=== PATIENT | female | born 1945 | race Caucasian/White ===

== ENCOUNTER 2016-12-29 14:54 | Inpatient (IN) | payer OTHER, MEDICARE, MEDICAID ==
[2016-12-29] VITALS (7 sets, daily range): BP systolic 70–155; BP diastolic 45–95
[~2016-12-29] VITALS: Ht 149.9 cm; Wt 134.6 kg
[~2016-12-29 14:54] MED LIST: CITALOPRAM20 M1 PO; MAXZIDE1 TAB PO; METOPROLOL SUCC25 M1 PO; SOD1 PO; TAMOXIFEN CITRA20 MG PO
--- NOTE | 2016-12-29 15:10 | NUR ---
RECEIVED A 71 YEAR OLD FEMALE IN ROOM T2B BROUGHT IN BY [facility] FOR COMPLAINT OF SHORTNESS OF BREATH. PER PARAMEDICS, FAMILY ON SCENE STATED THAT PT HAS BEEN HAVING RESPIRATORY ISSUES FOR THE PAST 3 DAYS, WORSE TODAY WITH INCREASED LABORED BREATHING AND AUDBILE CRACKLES AND RONCHI. PER PARAMEDICS, PT ROOM AIR O2 SAT WAS LOW TO MID 80'S, ALBUTEROL/ATROVENT BREATHING TREATMENT STARTED AND ONE NITROGLYCERIN SPRAY GIVEN LEAD BURNER APPRENTICE. PT ARRIVED WITH EYES OPEN, NO TRACKING MOVEMENT, NON-VERBAL, UNRESPONSIVE TO PAINFUL STIMULI. PER PARAMEICS, FAMILY ON SCENE STATED THIS IS PTS BASELINE DUE TO HX OF CVA IN THE PAST. PT CHANGED INTO HOSPITAL GOWN AND ATTACHED TO PROCESS ENGINEERING INTERN. PT PLACED ON OXYGEN NON-REBREATHER MASK AT 15L WITH OXYGEN SATURATION AT 75%. MD CHAPMAN AT BEDSIDE FOR EVALUATION. RT PAGED.
[2016-12-29 15:54] LABS: PLATELET COUNT 425 x10^3mcL (130-400); RED CELL DISTRIBUTION WIDTH 15.6 % (11.5-14.5)
--- NOTE | 2016-12-29 15:55 | NUR ---
PT INTUBATED BY DR CHAPMAN X1 ATTEMPT, 7 ETT AT 21CM TO RIGHT LIP. PT PLACED ON VENTILATOR BY RT. PLEASE REFER TO VENT SETTINGS.
--- NOTE | 2016-12-29 16:00 | NUR ---
REPORT TO LATRELL BENJAMIN
--- NOTE | 2016-12-29 16:15 | NUR ---
XRAY COMPLETED AT BEDSIDE.
[2016-12-29 16:33] LABS: BAND NEUTROPHIL 2 % (0-10); BASOPHIL 0 % (0-2); MONOCYTE 1 % (0-7); SEGMENTED NEUTROPHILS 90 % (37-75)
[2016-12-29 16:34] LABS: rbc morphology (normal/abnorm) NORMAL (NORMAL)
[2016-12-29 16:35] LABS: CALCIUM 8.9 mg/dL (8.5-10.1); CARBON DIOXIDE 18.8 mmol/L (21-32); CHLORIDE SERUM 97 mmol/L (98-107); CREATININE SERUM 0.7 mg/dL (0.6-1.0); GLUCOSE SERUM 157 mg/dL (74-106); POTASSIUM SERUM 3.4 mmol/L (3.5-5.1); SODIUM SERUM 135 mmol/L (136-145)
[2016-12-29 16:45] LABS: ALBUMIN 2.5 g/dL (3.4-5.0); ALKALINE PHOSPHATASE 133 U/L (46-116); ALT/SGPT 19 U/L (14-59); AST/SGOT 27 U/L (15-37); BILIRUBIN TOTAL 0.8 mg/dL (0.20-1.00); LIPASE 89 IU/L (73-393); TOTAL PROTEIN, SERUM 6.3 g/dL (6.4-8.2)
[2016-12-29 17:41] LABS: UA SPECIFIC GRAVITY >=1.030 (1.005-1.035); microscopic required? YES; urine erythrocyte 3+ (NEGATIVE)
--- NOTE | 2016-12-29 17:50 | NUR ---
PT TO CT VIA HIPOLITO ATTACHED TO CLINICAL COURIER AND VENTILATOR WITH RT AND LATRELL BENJAMIN.
--- NOTE | 2016-12-29 17:56 | NUR ---
REPORT CALLED AND GIVEN TO CASSIDY SPENCER. PT TO BE ADMITTED TO ICU 3.
--- NOTE | 2016-12-29 17:56 | NUR ---
REPORT TAKEN FROM LEODAN IN ER, ALL CARE ENDORSSED. PT IS GOING TO ROOM 3
--- NOTE | 2016-12-29 18:03 | NUR ---
CT COMPLETED PT NOW BACK IN ROOM WITHOUT INCIDENCE.
[2016-12-29 18:30] LABS: T3 TOTAL 0.46 ng/mL
[2016-12-29 18:51] LABS: FREE T4 1.1 ng/dL (0.76-1.46); FREE THYROXINE INDEX 3.1 ug/dL (1.4-4.5); T4(THYROXINE) 8.9 ug/dL (4.7-13.3)
--- NOTE | 2016-12-29 19:03 | NUR ---
RECEIVED PT FROM ER INTUBATED NOT SEDATED AT TIME. PT EYES IS OPEN, NOT TRACKING, NON VERBAL, UNRESPONSSIVE TO PAINFUL STIMILUS, DUE TO PREVIOUS CVA, PER PERAMEDIC TEAMS FROM FAMILY. NO FAMILY WITH PT. UNKOWN MEDS TAKEN AT HOME. ETT 7.0, 21 CMLL, 22G RFA, 20G LEFT HAND, PT ON LEVOPHED AT 5MCG/MIN. BOWEL SOUND HYPOACTIVE X4Q.GARDNER IN PLACE. MULTIPLES WOUND TO BUTTOCKS PRESSURE ULCER, R SIDED BACK, R ELBOW, R TIGH, LEFT HEEL WOUND CULTURE AND PHOTOS COMPLETED. FOOT DROP TO BLE. BRUISES TO BUE. SAFETY IN PLACE. WILL CONTINUE TO MONITOR.
--- NOTE | 2016-12-29 19:40 | NUR ---
THERE IS DRY DRESSING STIKING INSIDE PT WOUND AT BUTTOCK AND PIECE OF DRESSING PROTRUDING OUT, IT SHOWS IN PHOTO. NOT ABLE TO TAKE IT OUT. I SOAKED IT WITH NS AND WILL RECHECK IT LATER.
--- NOTE | 2016-12-29 20:00 | NUR ---
WOUND CULTUFE COLLECTED FROM ALL WOUNDS, AND PHOTOS WAS TAKEN TO BUTTOCKS AREA AND R UPPER SIDE OF BACK, R TIGH, R ELBOWW, LEFT HEEL,AND PUT PHOTOS IN CHART, DR AVALOS SAWS PHOTOS AND WOUND CARE ORDERED.
--- NOTE | 2016-12-29 20:10 | NUR ---
RT AT PT BEDSIDE PER PROTOCOL.
--- NOTE | 2016-12-29 20:10 | NUR ---
CALL PT DAUGHTER AND GOT AGREEMENT WITH PT DAUGHTER PAM YOUNGER FOR CONSENT. DR RO AND NURSE BOTH TAKED TO HER AND AREN PT DAUGHTER SAIB YES FOR CENTRAL LINE INSERTION.
--- NOTE | 2016-12-29 20:16 | NUR ---
CENTRAL LINE KIT AT AT PT BEDSIDE TO SATART CENTRAL LINE INSERTION.
--- NOTE | 2016-12-29 21:01 | NUR ---
DR RO AT PT BEDSIDE GATHERING TO STARTS CENTRAL LINE INSERTION.
[2016-12-29 21:07] LABS: MAGNESIUM 1.5 mg/dL (1.8-2.4); PHOSPHOROUS 4.5 mg/dL (2.5-4.9)
--- NOTE | 2016-12-29 21:17 | NUR ---
US TECH AT PT BEDSIDE FOR CENTRAL LINE INSERTION.
--- NOTE | 2016-12-29 21:28 | NUR ---
US TECH DONE, TIME OUT 2124
--- NOTE | 2016-12-29 21:31 | NUR ---
KEMAL COMPLETED SUCCESS
--- NOTE | 2016-12-29 21:44 | NUR ---
CXR AT PT BEDSIDE FOR RIJ PLACEMENT CONFIRMATION.
--- NOTE | 2016-12-29 21:45 | NUR ---
DR GATES IN THE UNIT. UPDATED ON PT'S STATUS.
--- NOTE | 2016-12-29 22:00 | NUR ---
TRY TO TAKE OUT THE DRESSING FROM INSIDE THE WOUND. HALF OF IT CAME OUT AND HALF STILL STICKING INSIDE THE WOUND..
--- NOTE | 2016-12-29 22:30 | NUR ---
PT TEMP 94.4 COVERED PT WITH WARM BLANKETS AND HEATER ON IN ROOM, WILL CONTINUE TO MONITOR.
--- NOTE | 2016-12-29 23:05 | NUR ---
PEFR DR TILLMAN VT 450, R 16, PEEP 5, FIO2 100%
[2016-12-30] VITALS (17 sets, daily range): BP systolic 81–118; BP diastolic 45–75
--- NOTE | 2016-12-30 | NUR ---
FIO2 90% PER RT.
--- NOTE | 2016-12-30 | NUR ---
REASSEMENT IS COMPLETED. PT IS INTUBATED AND SEDATED WITH FENTANYL AT 0.5MCG/KH/HR AND FENTANYL AT 1MG/HR. MRSS5. PT OPEN EYES FOR TACTILE STIMILUS. RIJ IN PLACE, INTACT. OAY TO USE PER DR BOWIE. OGT. NO DIET YET, DR AVALOS AWARED. BOWEL SOUND ACTIVE X4 Q. SCD'S IN PLACE. HP SQ. SAFETY MAITAINED. ON CONTACT PRECAUTION FOR MRSA HX. ON GAYMORE FOR LOW TEMP. WILL CONTINUE TO MONITOR.
--- NOTE | 2016-12-30 | NUR ---
RECTAL TEMP 94.3. PUT PT ON GAYMORE WITH HEAT, WILL CONTINUE TO MONITOR.
--- NOTE | 2016-12-30 00:15 | NUR ---
D/C IV ON H HAND. WAS BLEEDING.
--- NOTE | 2016-12-30 02:00 | NUR ---
FIO2 80% AT TIME RT AT PT BEDSIDE PER PROTOCOL
[2016-12-30 05:18] LABS: PLATELET COUNT 310 x10^3mcL (130-400)
[2016-12-30 05:25] LABS: BASOPHIL % 0 % (0-2); RED CELL DISTRIBUTION WIDTH 15.2 % (11.5-14.5)
--- NOTE | 2016-12-30 05:29 | NUR ---
FIO2 70% PER RT PROTOCOL.
[2016-12-30 05:35] LABS: CARBON DIOXIDE 21.9 mmol/L (21-32); CHLORIDE SERUM 106 mmol/L (98-107); CREATININE SERUM 0.6 mg/dL (0.6-1.0); GLUCOSE SERUM 162 mg/dL (74-106); MAGNESIUM 1.1 mg/dL (1.8-2.4); PHOSPHOROUS 2.3 mg/dL (2.5-4.9); SODIUM SERUM 141 mmol/L (136-145); TRIGLYCERIDES 67 mg/dL (<150)
[2016-12-30 05:43] LABS: CHOLESTEROL 54 mg/dL (<200); CHOLESTEROL/HDL RATIO 2.3; HDL CHOLESTEROL 24 mg/dL (40-60)
[2016-12-30 05:46] LABS: POTASSIUM SERUM 2.2 mmol/L (3.5-5.1)
--- NOTE | 2016-12-30 06:09 | NUR ---
PT HAS 2 WHITE METAL RINGS TO LEFT HAND FINGERS. AND FINGERS STARTED TO SWELLED. TOOK RIMGS OUT PT FINGERS AND PUT THEN IN A PLASTIC BAG IN CHART. AND WILL ENDORSE IT TO DAY NURSE AND TO GIVE TO FAMILY. CHARGE NURSE RIKY MOSESED ME.
--- NOTE | 2016-12-30 06:16 | NUR ---
MG 1.1, K 2.2, DR REILLY AWARED. NEW ORDER GIVEN, WE LEYDI OUT THE ORDER.
--- NOTE | 2016-12-30 07:24 | NUR ---
REPORT NICCI SIFUENTES, ALL CARE ENDORSSED.
[2016-12-30] MEDS ORDERED: TAMOXIFEN CITRA20 MG PO ×2 (07:47→08:01)
[2016-12-30] MEDS ORDERED: BUS5 PO (07:48)
[2016-12-30] MEDS ORDERED: FLUOXETINE HYDR10 M1 PO ×2 (07:50→08:01)
[2016-12-30] MEDS ORDERED: ELIQUIS5 MG PO ×2 (07:54→08:01)
[2016-12-30] MEDS ORDERED: TOPAMAX50 M1 PO (07:55)
[2016-12-30] MEDS ORDERED: LIPITOR80 MG PO ×2 (07:56→08:01)
--- NOTE | 2016-12-30 08:00 | NUR ---
ASSESSMENT DONE, PT IS SEDATED, HX OF CVA, UNRESPONSIVE. OPENS EYES BLINK TO CORNEAL REFLEX, NO TRACKING, AND NO PURPOSEFUL MOVEMENTS. PUPILS 3 SLUGGISH BILAT. LUNGS CTA, DIM AT BASES. ORALLY INTUBATED, AC MODE, RATE 16, FIO2 70%, Vt 450, PEEP 5, SAT 100% WITH VENT. OGT INTACT CLAMPED. LEVOPHED CONTINUED TO SUPPORT BP. CVP 3. FENTANYL AND VERSED CONTINUED FOR SEDATION. ABD SOFT HYPO BOWEL SOUNDS. NO BM. F/C TO GRAVITY, LOW URINE OUTPUT. EXPLAINED MEDS GIVEN ACTIONS AND POSSIBLE SIDE EFFECTS. CONDITION GUARDED. WILL REASSESS.
[2016-12-30] MEDS ORDERED: TOPIRAMATE25 M2 PO (08:01)
[2016-12-30] MEDS ORDERED: BUSPIRONE HCL5 MG PO (08:01)
--- NOTE | 2016-12-30 09:37 | NUR ---
DR ANTUNEZ HERE FOR ROUNDS WITH DR ESQUEDA, UPDATES GIVEN. DR ANTUNEZ SPOKE WITH REGARDING PROGNOSIS AND PLAN OF CARE. WILL REASSESS.
--- NOTE | 2016-12-30 10:05 | NUR ---
PATIENT ROUNDS WITH DR. SINGH AND RESIDENTS. CHARGE NURSE AND PRIMARY NURSE AT BEDSIDE. UPDATES PROVIDED. POC DISCUSSED. WILL CONTINUE TO MONITOR.
--- NOTE | 2016-12-30 12:12 | NUR ---
Initial Nutrition Assessment Dx: Septic Shock 2/2 Aspiration PNA vs UTI vs decubitus ulcers, S/P Et tube insertion (12/29/16 @ 1555), S/P Right IJ central line (12/29/16) PMHx: CVA with quadrapalegia and Aphasia, Alcoholic Liver Cirrhosis, Left-sided breast cancer s/p chemo/radiation, Depression, HTN PSHx: Cholecystectomy, Left hip fracture s/p surgical gonzalez placement Labs: K+ 2.2L, BG 162H, Alb 2.5L, Phos 2.3L, ALP 133H, Mg 1.1H, A1C 5.4, NH4 22, Lactic Acid 3.8H, WBC 21.6H, H/H 9.2/29L, PO2 116.2H, Tmax 37C, MV 9, FiO2 40, P:U=[id number] Meds: protonix, norco, NS, KCl-, magnesium sulfate, Levophed, Versed, fentanyl, zofran, morphine Current TF Order: Nutren Pulmonary via NGT 50ml/[id number], 82g protein, 938ml free H2O. "Prosource". Free H2O Flush:150ml (NGT x2 days) TF Intakes: none recorded as of yet (12/30) GRV:none recorded (12/30) I/O:2898/310 (+2588ml) Ht: 149cm,59". Wt: 120lbs, 55kg-current bedscale. BMI: 28 kg/m2 (Overweight-Question Accuracy) IBW: 88lb, 40 kg (10% for Quadraplegia). %IBW: 136. %. UBW: unable to obtain Age: 71 Y/O F Food Allergies: NKFA Skin: Stage IV sacral decubitus ulcer, unstageables ulcers to LT heel, back and RT elbow. Shaheen:9. Edema: None noted GI:bowel sounds active . Last BM:none (12/29) D.O Consult: TF-severe malnutrition; RN Trigger: appears underweight/malnourished Pt admitted w/ Septic Shock 2/2 Aspiration PNA vs UTI vs decubitus ulcers, S/P Et tube insertion (12/29/16 @ 1555), S/P Right IJ central line (12/29/16). As per D.O note 12/30- Pt is currently lying in bed intubated , Versed 1 mg/hr, Fentanyl 0.5 mcg, Levophed 5 mcg/min, 300 cc output. Pt seen at bedside +ETT to vent support, +OGT in place w/ dark brown output, no family present, pt is on contact isolation, the pt has severe rib cage and temporal wasting, is of small frame and appears to weigh less then 90-100lbs, the RD observed no TF bag or pump hanging, noticed Levophed infusing via IV, spoke to RN, reports the pt is having mild dark brown output from OGT, is requiring pressor supports via Levophed, is only requiring sedation via Fent and Versed, the RD informed RN of wt and BMI discrepency, the RN weighed pt and noted 120lbs as per bed scale, she states she will update the anthropometrics in EMR. Problem with: N: None. V: None. D: none. C: None. Problem with: Chewing: None. Swallowing: None. Current Appetite: N/A Recent Weight Change: unable to assess. % Weight Change: unable to assess Vitamin/Supplement Use: unable to obtain Diet at Home: unable to obtain Physical Activity: unable to obtain Education: unable to obtain Estimated Nutritional Needs Based on IBW 88 lb, 40kg Energy: 9590-1810 kcal/day (33-35 kcal/kg for Septic Shock, Wound Healing) Protein: 60-80 g/day (1.5-2 g/kg for Septic Shock, Wound Healing) Fluid: 6017-0982 ml/day (33-35 ml/kg for Septic Shock, Wound Healing) or per MD Nutrition Diagnosis 1. Malnutrition related to increased protein and energy needs 2/2 hypercatabolism, impaired skin integrity as evidenced by pt w/ multiple wounds, is intubated and sedated, and significant rib cage and temporal wasting Intervention 1. When medically feasible, initiate Peptamen AF at 15ml/hr and advance by 10ml q4hr to goal rate of 45ml/hr to provide 1296kcals, 82g protein, and 873ml free H2O. Free H2O Flush of 110ml q6hr (total free H2O 1313ml) or per MD. Monitor/Evaluate Goal: TF meeting at least 50% of needs w/ tolerance; Skin integrity is maximized during LOS Monitor: TF intakes/tolerance, labs, skin integrity, GI function, wt F/U in 2-3 days as HIGH risk (01/01-01/02)
--- NOTE | 2016-12-30 12:40 | NUR ---
BP LOW 80/43, AND 58/35, TITRATED LEVOPHED UP TO 22MCGS, WITH FREQUENT ASSESSMENT SEE FLOW SHEET. WILL REASSESS.
--- NOTE | 2016-12-30 13:30 | NUR ---
BP NOW 92/64. WILL REASSESS.
--- NOTE | 2016-12-30 14:30 | NUR ---
DR ORTIZ HERE TO SEE PT AND ASSESS, HE ASSESSED SACRAL WOUND AND FOUND CREPITUS TO LEFT HIP AND RENTERIA FOUL SMELLING DRAINAGE. DR ESQUEDA CALLED FAMILY FOR CONSENT FOR I&D BY DR BROWN. DRY DRESSING APPLIED TO SACRAL WOUND. WILL REASSESS.
--- NOTE | 2016-12-30 15:39 | NUR ---
DR ORTIZ HERE TO SEE PT AND ASSESS WITH ORDERS FOR BLOOD TRANSFUSION. WILL REASSESS.
--- NOTE | 2016-12-30 16:20 | NUR ---
DR CUEVA HERE TO SEE PT AND SPOKE WITH PTS REGARDING CONDITION AND PLAN OF CARE, NOTED BNP AND INCREASING EDEMA. WILL REASSESS.
[2016-12-30 16:27] LABS: CHLORIDE SERUM 106 mmol/L (98-107); CREATININE SERUM 0.6 mg/dL (0.6-1.0); GLUCOSE SERUM 181 mg/dL (74-106); MAGNESIUM 1.9 mg/dL (1.8-2.4); PHOSPHOROUS 2.6 mg/dL (2.5-4.9); POTASSIUM SERUM 3.3 mmol/L (3.5-5.1); SODIUM SERUM 139 mmol/L (136-145)
--- NOTE | 2016-12-30 17:04 | NUR ---
CALLED DR ESQUEDA REGARDING NPO STATUS PER DR ORTIZ. WILL REASSESS.
--- NOTE | 2016-12-30 17:34 | NUR ---
PT WAS HAVING RUNS OF VT, APPEARING ON THE MONITOR. EKG DONE AND SHOWS ST. DR ESQUEDA NOTIFIED. QUINTIN GIVEN PER MD ORDER.
--- NOTE | 2016-12-30 18:07 | NUR ---
MED PER OGT WITH NORCO, ST, HR DECREASED. WILL REASSESS.
--- NOTE | 2016-12-30 19:08 | NUR ---
REPORT GIVEN TO JOHANNA BENJAMIN, CONDITION GUARDED.
--- NOTE | 2016-12-30 19:24 | NUR ---
REPORT TAKEN FROM CHANO, ALL CARE ENDORSSED.
--- NOTE | 2016-12-30 19:25 | NUR ---
RECEIVED PT INTUBATED AND SEDATED WITH FENTANYL AT 0.5 MCG/KG/HR. AND VERSED AT 1MG/HR, MRSS 5, VENTED WITH AC MODE VT 400, R 16, PEEP 5, FIO2 40%. RIJ INTACT. OGT, BOWEL SOUND ACTIVE X4Q. MULTIPLE WONDS TO BUTOCK AREA R UPPER BACK. R TIGH, R ELBOW. LEFT HEEL. PT TOMORROW WILL HAVE EDEBRIDMENT WITH DR CANCINO AT 0800 CONSENT SIGNED BY PT , AND GIVE ONE UNIT OF BLOOD AT 2000 TONIGH PER . PT IS NPO AT TIME. REPOSITION PER PROTOCOL. SAFETY IN PLACE. WILL CONTINUE TO MONITOR.
--- NOTE | 2016-12-30 20:10 | NUR ---
RT AT PT BEDSIDE PER PROTOCOL.
--- NOTE | 2016-12-30 21:00 | NUR ---
ONE UNIT OF BLOOD STARTED AT TIME, TYLENOL AND BENADYL GIVEN PRIOR AND LASIX WILL GIVE AFTER BLOOD TRANSFUSE COMPLETED.
--- NOTE | 2016-12-30 22:45 | NUR ---
BLOOD TRANSFUSE COMPLETED, LASIX GIVEN, PT CORA WELL.
[2016-12-31] VITALS (16 sets, daily range): BP systolic 90–132; BP diastolic 51–69
--- NOTE | 2016-12-31 00:30 | NUR ---
REASSESSMENT IS COMPLETED PT IS INTUBATED AND SEDATED WITH FENTANYL AT 0.5MCG/HG/HR, AND VERSED AT 1MG/HR. MRSS 5. PT OPEN EYES TO TACTILE STIMILUS. ON LEVOPHED AT 20MCG/MIN. NS AT 150ML/HR. RIJ INTACT. OGT. BOWEL SOUNF HYPOACTIVE X4Q. GARDNER IN PLACE. SCD'S. WILL CONTINUE TO MONITOR.
--- NOTE | 2016-12-31 01:12 | NUR ---
RT AT PT BEDSIDE PER PROTOCOL
--- NOTE | 2016-12-31 03:00 | NUR ---
FULL BATH GIVEN AND BED SHEETS CHANGES, PT IS CDI.
--- NOTE | 2016-12-31 05:00 | NUR ---
DRESSING CHANGES ON WOUNDS, 2% CHLORHEXIDINE COMPLETED. CHECK LIST IN CHART. WILL ENDORSSE THE CARE TO DAY NURSE.
[2016-12-31 05:02] LABS: PLATELET COUNT 257 x10^3mcL (130-400)
[2016-12-31 05:08] LABS: RED CELL DISTRIBUTION WIDTH 15.8 % (11.5-14.5)
[2016-12-31 05:24] LABS: BAND NEUTROPHIL 8 % (0-10); MONOCYTE 2 % (0-7); SEGMENTED NEUTROPHILS 86 % (37-75)
[2016-12-31 05:26] LABS: rbc morphology (normal/abnorm) ABNORMAL (NORMAL)
[2016-12-31 05:27] LABS: PLATELET MORPHOLOGY FEW LARGE PLATELETS
[2016-12-31 05:47] LABS: CHLORIDE SERUM 106 mmol/L (98-107); POTASSIUM SERUM 3.5 mmol/L (3.5-5.1); SODIUM SERUM 135 mmol/L (136-145)
[2016-12-31 05:48] LABS: CALCIUM 6.5 mg/dL (8.5-10.1); CARBON DIOXIDE 19.5 mmol/L (21-32); CREATININE SERUM 0.8 mg/dL (0.6-1.0); GLUCOSE SERUM 150 mg/dL (74-106); MAGNESIUM 1.6 mg/dL (1.8-2.4); PHOSPHOROUS 2.5 mg/dL (2.5-4.9)
--- NOTE | 2016-12-31 07:10 | NUR ---
K= 3.5 AND PT HAS ROUTINE K-RIDER. CALLED DR LARRY AND REPORTED TO HIM IF HE STILL WANT ME TO INFUSE K-RIDER. AND DR LARRY SAID OKAY TO INFUSE IT.
--- NOTE | 2016-12-31 07:10 | NUR ---
RECEIVED REPORT FROM NOC SHIFT RN JOHANNA, ALL QUESTIONS AND CONCERNS ADDRESSED AT THIS TIME. WILL ASSUME ALL CARE.
--- NOTE | 2016-12-31 07:13 | NUR ---
REPORT GIVEN TO JJ, ALL CARE ENDORSSED.
--- NOTE | 2016-12-31 07:40 | NUR ---
MAP 80, TITRATE LEVO TO 18 MCG/MIN. WILL CONTINUE TO MONITOR.
--- NOTE | 2016-12-31 07:45 | NUR ---
PT IS INTUBATED AND SEDATED ON FENT 0.5 MCG/KG/HR, VERSED 1 MG/HR, PT RSS 4 PT HAS A BRISK RESPONSE TO STIMULI, PER FAMILY BASELINE NEURO IS THAT PT DOES NOT TRACK WITH EYES AND IS NONVERBAL. PT PUPILS ARE SLUGGISH 2 MM BILATERALLY. PT GRIMACES TO PAIN, PT DOES NOT FOLLOW COMMANDS. PT INTUBATED WITH 7.0 ETT, 23 LL, OGT IN PLACE, RIJ INFUSING. PT ON AC MODE, PEEP 5, FI02 40%, RATE 16, VT 400. BUL/BLL RHONCHI. PT ABD IS SOFT, FLAT, SYMMETRICAL AND NONTENDER TO PALPATION. PT HAS HYPOACTIVE BOWEL SOUNDS X 4 QUADRANTS, NO BM AT THIS TIME. PT HAS GARDNER CATH IN PLACE DRAINING TO GRAVITY YELLOW URINE, NO VAGINAL DISCHARGE OR LABIAL EDEMA NOTED AT THIS TIME. PT HAS FOOT DROP ON BILATERAL FEET. PT HAS LARGE COCCYX WOUND CDI DRESSING, PT ALSO HAS ULCERS ON L HEEL, R THIGH, R ELBOW ALL WITH CDI DRESSINGS. PT IS REPOSITIONED Q2H TO PREVENT SKIN BREAKDOWN. PT IS ON CHIEF BUILDING INSPECTOR AND WITHIN CLOSE VIEW OF NURSES STATION. WILL CONTINUE TO MONITOR AT THIS TIME.
--- NOTE | 2016-12-31 09:19 | NUR ---
REPORT GIVEN TO MANAGER INTELLIGENCE PALMER, ALL QUESTIONS AND CONCERNS ADDRESSED AT THIS TIME. 1 UNIT PRBC INITIATED PRIOR TO SURGERY. PT OFF UNIT AT THIS TIME VIA BED WITH OR STAFF. WILL AWAIT PT RETURN.
--- NOTE | 2016-12-31 09:20 | NUR ---
Pt DISCONNECTED FROM VENT AND BEING MANUALLY VENTILATED WITH BAG AND MASK AT 15L BY OR TEAM. WILL MONITOR.
--- NOTE | 2016-12-31 10:02 | NUR ---
Pt RECEIVED BACK FROM OR TEAM AND PLACED BACK ON PREVIOUS VENTILATOR SETTINGS. AC 16, VT 400, PEEP +5, FIO2 40%. Pt'S VITALS STABLE. ELIJAH QUINN.
--- NOTE | 2016-12-31 10:02 | NUR ---
PT BACK FROM OR, REPORT GIVEN AT BEDSIDE, PT HAS 20 ML EBL, PER ONLY GIVE THE 1 UNIT OF BLOOD PRIOR TO SX AND NONE AFTER. WILL CONTINUE TO MONITOR AT THIS TIME.
--- NOTE | 2016-12-31 10:45 | NUR ---
AT BEDSIDE, UPDATES PROVIDED AND RINGS RETURNED TO .
[2016-12-31] MEDS ORDERED: TAMOXIFEN CITRA20 MG PO (10:57)
[2016-12-31] MEDS ORDERED: TOPAMAX25 MG PO (10:58)
--- NOTE | 2016-12-31 11:02 | NUR ---
PT MAP 74, TITRATE LEVO TO 14 MCG/MIN. WILL CONTINUE TO MONITOR.
--- NOTE | 2016-12-31 13:15 | NUR ---
PT MAP 81, TITRATE LEVO TO 8 MCG/MIN AT THIS TIME. WILL CONTINUE TO MONITOR.
--- NOTE | 2016-12-31 14:24 | NUR ---
PT MAP IS 75, TITRATE LEVO TO 6 MCG/MIN. WILL CONTINUE TO MONITOR PT AT THIS TIME.
--- NOTE | 2016-12-31 16:20 | NUR ---
ASHU RT AT BEDSIDE TO TITRATE FI02 TO 30%. WILL CONTINUE TO MONITOR AT THIS TIME.
--- NOTE | 2016-12-31 16:20 | NUR ---
TITRATED FIO2 TO 30%. RN NOTIFIED. WILL MONITOR.
--- NOTE | 2016-12-31 18:49 | NUR ---
PT GIVEN BED BATH WITH GOWN AND LINEN CHANGE. CHG WIPES APPLIED AND GARDNER CARE GIVEN PER PROTOCOL. WILL CONTINUE TO MONITOR PT AT THIS TIME.
--- NOTE | 2016-12-31 19:15 | NUR ---
RECEIVED REPORT FROM CASSIDY GARDNER, ALL QUESTIONS ADDRESSED, WILL TAKE OVER CARE.
--- NOTE | 2016-12-31 19:45 | NUR ---
PT ON VENT SEDATED WITH FENTANYL AND VERSED, RSS 4, RESPONDS TO PAINFUL STIMULI, PUPILS REACTIVE, NO S/S OF HEADACHE. AC MODE B7.0, 23 LL, TRACHEA MIDLINE, NO DRAINAGE EENT, NO COUGH OR SECRETIONS, ORAL MUCOSA PINK AND DRY, ORAL CARE PROVIDED. HR 108, BP 92/54, MAP 70, CVP 11, CHEST WALL STABLE, NO CP, DIZZINESS, OR SYNCOPE, S1S2 AUSCULTATED. SKIN APPROPRIATE FOR ETHNICITY, WARM AND DRY, CAP REFILL <3, PULSES PALPABLE. NO CONTRACTURES OR DEFORMITIES, GENERALIZED WEAKNESS, LIMITED ACTIVE ROM DUE TO NEURO STATUS. BD, SOFT, ROUND NONTENDER, BOWEL SOUNDS HYPOACTIVE X4, F/C IN PLACE DRAINING TO GRAVITY, URINE YELLOW, NO LABIAL EDEMA OR VAGINAL DRAINAGE. HAS FAMILY SUPPORT, WILL CONTINUE TO MONITOR.
[2017-01-01] VITALS (16 sets, daily range): BP systolic 88–126; BP diastolic 43–107
--- NOTE | 2017-01-01 02:30 | NUR ---
LEVO TITRARED TO 6MCG, WILL CONTINUE TO MONITOR.
--- NOTE | 2017-01-01 04:32 | NUR ---
LEVO TITRATED TO 4MCG, WILL CONTINUE TO MONITOR.
[2017-01-01 05:23] LABS: PLATELET COUNT 180 x10^3mcL (130-400)
[2017-01-01 05:27] LABS: BASOPHIL % 0 % (0-2)
[2017-01-01 05:38] LABS: CALCIUM 6.1 mg/dL (8.5-10.1); CARBON DIOXIDE 20.1 mmol/L (21-32); CHLORIDE SERUM 106 mmol/L (98-107); CREATININE SERUM 0.5 mg/dL (0.6-1.0); GLUCOSE SERUM 89 mg/dL (74-106); MAGNESIUM 1.7 mg/dL (1.8-2.4); SODIUM SERUM 138 mmol/L (136-145)
[2017-01-01 05:45] LABS: POTASSIUM SERUM 2.1 mmol/L (3.5-5.1)
--- NOTE | 2017-01-01 05:50 | NUR ---
DR LARRY AT BEDSIDE, K 2.1, ORDERED 2 MORE K RIDERS, WILL CONTINUE TO MONITOR.
--- NOTE | 2017-01-01 06:56 | NUR ---
BED BATH GIVEN, CHG WIPES USED GOWN AND LINEN CHANGED, WILL CONTINUE TO MONITOR.
--- NOTE | 2017-01-01 07:10 | NUR ---
REPORT GIVEN TO CASSIDY MARTINEZ, ALL QUESTIONS ADDRESSED, WILL ENDORSE CARE.
--- NOTE | 2017-01-01 07:30 | NUR ---
RECEIVED REPORT FROM RAVINDRA BENJAMIN. ALL QUESTIONS AND CONCERNS ADDRESSED BEDSIDE.
--- NOTE | 2017-01-01 07:50 | NUR ---
ASHU RT AT BEDSIDE TO ADMINISTER BREATHING TX.
--- NOTE | 2017-01-01 07:55 | NUR ---
PATIENT RECEIVED LAYING IN BED WITH HOB ELEVATED TO 30 DEGREES. OPENS EYES TO VERBAL STIMULI. PATIENT SEDATED AND ON VENTILATOR. OGT IN PLACE CLAMPED. ETT IN PLACE TO VENT SETTINGS AC MODE RATE 14, VT 400, PEEP 5, FIO2 40%. CHEST EXPANSION SYMMETRICAL. RIJ IN PLACE INFUSING K-RIDER AT 50 ML/HR, NS AT 150 ML/HR, FENTANYL AT 0.5 MCG/KG/HR, VERSED AT 1 MG/HR AND LEVOPHED AT 2 MCG/MIN. ALL PORTS PATENT. CVP 11 AFTER ZEROING. IV TO RIGHT WRIST SALINE LOCKED. EDEMA NOTED TO BUE AND BLE EXTREMITIES. ABDOMEN SOFT AND FLAT. F/C IN PLACE DRAINING TO GRAVITY YELLOW COLORED URINE. SCD'S IN PLACE TO BLE. DEBRIDED SACRAL/COCCYX WOUND WITH DRESSING C/D/I, DTI TO BILATERAL HEELS, WOUNDS TO BILATERAL ELBOWS, RIGHT LATERAL SIDE OF BACK, AND RIGHT GROIN AREA SECURE SOFTWARE ASSESSOR. NO S/S OF DISTRESS NOTED. PATIENT PLACED ON LUANNE DUE TO IMPAIRED SKIN INTEGRITY. ORAL CARE PER VAP. WILL CONTINUE TO MONITOR.
--- NOTE | 2017-01-01 08:00 | NUR ---
PATIENT'S BP 126/70, MAP 84. TITRATED LEVOPHED TO 2 MCG. WILL CONTINUE TO MONITOR CLOSELY.
--- NOTE | 2017-01-01 08:45 | NUR ---
DR BROWN AT BEDSIDE TO ASSESS PATIENT. UPDATES PROVIDED BY NURSING.
--- NOTE | 2017-01-01 08:55 | NUR ---
DR HOLLIDAY, RESIDENTS AND [employer] ASSOCIATE ROUNDING AT THIS TIME. PATIENT UPDATES PROVIDED BY NURSING.
--- NOTE | 2017-01-01 09:46 | NUR ---
DR LONG AT BEDSIDE TO ASSESS PATIENT. PATIENT UPDATE PROVIDED BY NURSING. SEDATION OF FENTANYL AND VERSED TITRATED OFF FOR SEDATION VACATION. PATIENT TO BE PLACED ON CPAP.
--- NOTE | 2017-01-01 10:30 | NUR ---
PT STARTED ON CPAP. PSV 10, PEEP +5, FIO2 30%. HR 82, VT 442, RR 17, SPO2 100%, BP 84/45. PT TOLERATING CPAP WELL. WILL MONITOR.
--- NOTE | 2017-01-01 10:35 | NUR ---
ASHU RT AT BEDSIDE AND PLACED PATIENT ON CPAP 10/5, FIO2 39%.
--- NOTE | 2017-01-01 11:00 | NUR ---
TUBE FEED INITIATED AT THIS TIME. PEPTAMEN AF AT 15 ML/HR WITH FWF 110 Q 6HR.
--- NOTE | 2017-01-01 11:18 | NUR ---
PATIENT'S BP 110/88, MAP 95. LEVOPHED TITRATED OFF AT THIS TIME. WILL CONTINUE TO MONITOR CLOSELY.
--- NOTE | 2017-01-01 12:00 | NUR ---
PATIENT'S NELSON AT BEDSIDE TO VISIT WITH PATIENT. UPDATES PROVIDED BY NURSING.
--- NOTE | 2017-01-01 13:12 | NUR ---
SPOKE WITH DR LARRY VIA TELEPHONE AND REPORTED WOUND CULTURE OF HEELS. ALSO INFORMED HIM THAT WOUND CARE NURSE UNAVAILABLE AND ASKED TO MAKE RECOMMEDATIONS FOR DRESSING CHANGES. AWAITING NEW ORDERS AT THIS TIME.
--- NOTE | 2017-01-01 14:20 | NUR ---
PATIENT PROVIDED COMPLETE BED BATH WITH PERICARE AND CHG WIPES USED. PATIENT'S BED LINENS AND GOWN CHANGED AT THIS TIME.
[2017-01-01 15:06] LABS: CARBON DIOXIDE 17.6 mmol/L (21-32); CHLORIDE SERUM 111 mmol/L (98-107); CREATININE SERUM 0.5 mg/dL (0.6-1.0); GLUCOSE SERUM 74 mg/dL (74-106); POTASSIUM SERUM 3.6 mmol/L (3.5-5.1); SODIUM SERUM 139 mmol/L (136-145)
--- NOTE | 2017-01-01 16:19 | NUR ---
GARDNER CATHETER REMOVED AT THIS TIME.
--- NOTE | 2017-01-01 16:19 | NUR ---
PATIENT BEING TRANSFERRED WITH CELL PHONE AND EYEGLASSES.
--- NOTE | 2017-01-01 17:30 | NUR ---
Pt CHANGED BACK TO A/C SETTINGS: AC 16, VT 400, PEEP +5, FIO2 30%.
--- NOTE | 2017-01-01 17:36 | NUR ---
ASHU RT AT BEDSIDE AND PLACED PATIENT BACK ON AC MODE RATE 14, VT 400, PEEP 5, FIO2 30%. WILL CONTINUE TO MONITOR.
--- NOTE | 2017-01-01 19:18 | NUR ---
RECIEVED REPORT FROM JUAN BENJAMIN. ALL QUESTIONS AND CONCERNS ANSWERED. WILL ASSUME ALL CARE.
--- NOTE | 2017-01-01 20:13 | NUR ---
PT IS INTUBATED. ETT SECURED AND IN PLACE 7.0/23 LL, ATTACHED TO VENT. PT IS UNABLE TO FOLLOW COMMANDS, CANNOT MAKE NEEDS KNOWN. PT IS ABLE TO OPEN EYES SPONTANEOUSLY, CANNOT TRACK. PUPILS 2 AND SLUGGISH BILATERALLY. VENT SETTINGS: AC MODE, FIO2 30%, RATE 16, TIDAL VOLUME 400, PEEP 5. CLEAR LUNG SOUNDS HEARD TO BILATERAL UPPER LOBES, DIMINISHED BREATH SOUNDS HEARD TO BILAT BASES OF LOBES UPON AUSCULTATION. CHEST RISES EQUAL AND SYMMETRICAL. CENTRAL LINE IN PLACE TO RIJ, DRESSING CDI, ALL PORTS PATENT AND INFUSING. NS RUNNING AT 150 ML/HR. S1 AND S2 HEART SOUNDS PRESENT. BOWEL SOUNDS HEARD X4 QUADRANTS. GARDNER CATHETER IN PLACE, CLEAN AND PATENT, DRAINING YELLOW URINE. OGT IN PLACE, PEPTAMEN AF AT 15 ML/HR WITH FWF AT 110 ML Q6H. +3 PITTING EDEMA NOTED TO BUE AND +2 PITTING EDEMA NOTED TO BLE. WOUNDS NOTED TO LEFT HEEL, R ELBOW, RIGHT THIGH AND COCCYX AREAS. DRESSINGS ARE CDI. ORAL CARE PROVIDED, PT REPOSITIONED. HOB 30 DEGREES. BP 88/55, MAP 69, P 92, RR 16, O2 96%, TEMP 96.9, NO S/S OF PAIN OR DISTRESS NOTED AT THIS TIME. WILL CONTINUE TO MONITOR FOR ANY S/S OF ANY ACUTE CHANGES.
[2017-01-02] VITALS (20 sets, daily range): BP systolic 96–133; BP diastolic 47–79
--- NOTE | 2017-01-02 00:10 | NUR ---
ORAL CARE PROVIDED SUCTIONED SCANT AMOUNT OF SECRETIONS. PT REPOSITIONED PER PROTOCOL. HEELS AND ELBOWS OFFLOADED. GASTRIC RESIDUAL 100 ML, REPLACED. BP 104/64, MAP 71, P 104, RR 16, TEMP 98.5, NO S/S OF PAIN OR DISTRESS NOTED. WILL CONTINUE TO MONITOR FOR ANY ACUTE CHANGES.
--- NOTE | 2017-01-02 04:40 | NUR ---
PT REPOSITIONED PER PROTOCOL. PT CLEANED WITH WIPES, [place] CARE PROVIDED. SCANT AMOUNT OF THICK SECRETIONS SUCTIONED UPON ORAL CARE. CENTRAL LINE DRESSING CHANGED, INITIALED AND DATED. WILL CONTINUE TO MONITOR FOR ANY ACUTE CHANGES.
[2017-01-02 04:52] LABS: BASOPHIL % 0.1 % (0-2); PLATELET COUNT 139 x10^3mcL (130-400)
[2017-01-02 04:56] LABS: RED CELL DISTRIBUTION WIDTH 16.1 % (11.5-14.5)
[2017-01-02 05:07] LABS: CARBON DIOXIDE 20.2 mmol/L (21-32); CHLORIDE SERUM 109 mmol/L (98-107); CREATININE SERUM 0.4 mg/dL (0.6-1.0); GLUCOSE SERUM 84 mg/dL (74-106); MAGNESIUM 1.9 mg/dL (1.8-2.4); PHOSPHOROUS 1.3 mg/dL (2.5-4.9); SODIUM SERUM 138 mmol/L (136-145)
[2017-01-02 05:10] LABS: POTASSIUM SERUM 2.6 mmol/L (3.5-5.1)
--- NOTE | 2017-01-02 06:37 | NUR ---
PT ASKING FOR ATIVAN,GIVEN 1 MG PO.AM CARE TO SELF DONE.LABS DRAWN BY TECH.PT SEEN BY .
--- NOTE | 2017-01-02 07:14 | NUR ---
RECEIVED REPORT FROM TAM BENJAMIN.
--- NOTE | 2017-01-02 07:45 | NUR ---
PT IS INTUBATED, NOT ON SEDATION. PT RESPONDS TO NOXIOUS STIMULI, NO PURPOSEFUL MOVEMENT NOTED. PT HAS HX OF STROKE. PERRLA, 2MM SLUGGISH. SIZE 7.0 ETT INTACT AND SECURED, 23 @ LL. ETT TO VENT, AC/VCV: RATE 16, TV 400, PEEP 5, FIO2 30%. BREATHING IS EVEN AND UNLABORED. LUNG SOUNDS ARE CLEAR TO BUL, DIMINISHED TO BASES. HEART SOUNDS DISTANT. NSR W/ OCCASIONAL PACS, HR = 95. PULSES ARE WEAK X4. CAP REFILL > 3 S. SKIN IS WARM AND PALE. +2 EDEMA NOTED TO BUE AND BLE. WEEPING SKIN TO BUE. R IJ INTACT, PORTS PATENT, DRESSING CDI, INFUSING NS @ 150 CC/HR. K-RIDER INFUSING AT THIS TIME @ 50 CC/HR. OGT INTACT AND SECURED, INFUSING PEPTAMEN AF @ 15 CC/HR, 100 CC FWF Q6H. TOLERATING TF POORLY, 300 CC GRV. WOUNDS TO SACCROCOCCYX, L HEEL, R ELBOW, DRESSINGS CDI. WOUND TO R THIGH, COMMUNITY SUPPORT SPECIALIST. GARDNER INTACT AND DRAINING VIA GRAVITY. URINE IS CLEAR, YELLOW, ADEQUATE OUTPUT. NO S/SX OF PAIN AT THIS TIME. NO DISTRESS NOTED. WILL CONTINUE TO MONITOR.
--- NOTE | 2017-01-02 07:50 | NUR ---
TUBE FEEDING PUT ON HOLD AT THIS TIME D/T HIGH RESIDUAL AND FOR UPCOMING CPAP TRIAL.
--- NOTE | 2017-01-02 08:30 | NUR ---
YESICA RT PT PUT ON CPAP PEEP 5, PSV 10
--- NOTE | 2017-01-02 10:14 | NUR ---
MORPHINE 2MG IVP GIVEN D/T PT APPEARING IN PAIN. FACIAL GRIMACE NOTED. PT ALSO BITING DOWN ON ETT. FLACC = 6.
--- NOTE | 2017-01-02 11:15 | NUR ---
CLEANSED AND CHANGED DRESSINGS ON BUE, RIGHT BACK, BILATERAL HEELS, AND SACCROCOCCYX.
--- NOTE | 2017-01-02 12:15 | NUR ---
DR TILLMAN AT BEDSIDE TO SEE PT. UPDATED ON PT STATUS, QUESTIONS ANSWERED.
--- NOTE | 2017-01-02 12:20 | NUR ---
Follow-up Nutrition Assessment Dx: Septic Shock 2/2 Aspiration PNA vs UTI vs decubitus ulcers, S/P Et tube insertion (12/29/16 @ 1555), S/P Right IJ central line (12/29/16) PMHx: CVA with quadrapalegia and Aphasia, Alcoholic Liver Cirrhosis, Left-sided breast cancer s/p chemo/radiation, Depression, HTN Labs: K+ 2.6L, BG 84, Cr 0.4L, Phos 1.3L, Mg 1.9H, WBC 8.2, H/H 9.8/30L; (12/29) Alb 2.5L, ALP 133H, A1C 5.4, NH4 22, Lactic Acid 3.8H, PO2 116.2H, Tmax 37C, MV 9, FiO2 40, P:W=337P Meds: theragran, protonix, NS, vitamin C 500mg BID, KCl-, neutra-phos, Levophed, versed, fentanyl,zofran Current TF Order (01/01): Peptamen AF via NGT 45ml/fd=[id number], 82g protein, and 873ml free H2O. Free H2O Flush:110ml q6hr (NGT x5 days) TF Intakes: none recorded as of yet (12/30); 902cf=[id number] (30%), 28g protein (35%) (01/02) GRV:none recorded (12/30); 60ml (01/01); 100ml, 300ml (01/02) I/O:1983/400 (+1583ml) Wt: 120lbs, 55kg-current bedscale (12/30), 63kg (01/02)- up 8kg in 3 days likely d/t fluid shifts. BMI: 28 kg/m2 (Overweight-Question Accuracy) Skin: Stage IV sacral decubitus ulcer, unstageables ulcers to LT heel, back and RT elbow. Shaheen:8. Edema: +2 to BUE and BLE GI:abd soft and rounded, bowel sounds hypoactive . Last BM:none (12/29) Problem with: N: None. V: None. D: none. C: None. Pt admitted w/ Septic Shock 2/2 Aspiration PNA vs UTI vs decubitus ulcers, S/P Et tube insertion (12/29/16 @ 1555), S/P Right IJ central line (12/29/16). As per D.O note 01/02- Patient's postop day 1 from a sacral debridement done by Dr. Cisneros the OR also the left buttocks. Dr. Cisneros states it is not necrotizing fasciitis and no further needs for either sacral decubitus ulcer decubitus ulcer left buttocks as needed other than the wound care. Patient continues to be intubated with right internal jugular OGTT and ETT and Benjamin catheter. Fluids still at a rate of 150 mils per hour. Family cannot be contacted to perform excisional debridement of the remaining decubitus ulcers on the right heel right elbow and right buttocks. Plan is to get consent from daughters are Masha tomorrow and perform debridement tomorrow. Limited review of systems secondary to the fact the patient's baseline since her cerebrovascular accident is a phasic, patient does spontaneously blink however does not track, patient does respond to noxious stimuli by localizing pain and flexing way from the pain. Pt seen at bedside +ETT to vent support, +OGT in place, no family present, pt is on contact isolation, the RD observed Levophed on standby, noticed Peptamen AF turned off and hanging, spoke to RN, reports the pt was not tolerating TF since it was initiated yesterday in the PM, had 300ml residuals when Peptamen was at 15ml/hr rate, currently the TF is turned off for CPAP trials, Levophed has been on standby since 2pm (01/01), no BM during shift. Estimated Nutritional Needs Based on IBW 88 lb, 40kg Energy: 5090-9555 kcal/day (33-35 kcal/kg for Septic Shock, Wound Healing) Protein: 60-80 g/day (1.5-2 g/kg for Septic Shock, Wound Healing) Fluid: 8287-4473 ml/day (33-35 ml/kg for Septic Shock, Wound Healing) or per MD Nutrition Diagnosis 1. Malnutrition related to increased protein and energy needs 2/2 hypercatabolism, impaired skin integrity as evidenced by pt w/ multiple wounds, is intubated and sedated, and significant rib cage and temporal wasting-*Continues 2. Inadequate Enteral Nutrition Infusion related to poss intolerance as evidenced by TF only running at 15ml/hr and GRV: 100, 300ml Intervention 1. C/W Peptamen AF at 15ml/hr and advance by 10ml q4hr to goal rate of 45ml/hr to provide 1296kcals, 82g protein, and 873ml free H2O. Free H2O Flush of 110ml q6hr (total free H2O 1313ml) or per MD. 2. If GRV's continue to be greater than 250ml x2, consider Prokinetic Agent (ie. Reglan or Erythromycin), Dr. Martin was notified. Monitor/Evaluate Previous Goal: TF meeting at least 50% of needs w/ tolerance-Not Met; Skin integrity is maximized during LOS-Ongoing Goal: TF meeting at least 50% of needs w/ tolerance; Skin integrity is maximized during LOS; GRV less than 250ml x2 Monitor: TF intakes/tolerance, labs, skin integrity, GI function, wt F/U in 2-3 days as HIGH risk (01/04-01/05)
--- NOTE | 2017-01-02 17:20 | NUR ---
PT PUT BACK ON AC/VCV MODE: RATE 16, TV 400, PEEP 5, FIO2 30%.
--- NOTE | 2017-01-02 17:46 | NUR ---
TUBE FEEDING RESUMED @ 15 CC/HR, 110 CC FWF Q6H.
--- NOTE | 2017-01-02 19:05 | NUR ---
REPORT GIVEN TO JOHANNA BENJAMIN AND TAM BENJAMIN. ALL CARE ENDORSED, QUESTIONS ANSWERED.
--- NOTE | 2017-01-02 19:10 | NUR ---
RECEIVED REPORT FROM NORMA, ALL CARE ENDORSSED.
--- NOTE | 2017-01-02 20:41 | NUR ---
PT IS INTUBATED. ETT IN PLACE AND SECURED ATTACHED TO VENT. 7.0 ETT/23 LL. PT IS NOT ABLE TO FOLLOW COMMANDS, CANNOT MAKE NEEDS KNOWN. PUPILS ARE 2 AND SLUGGISH. PT OPENS EYES SPONTANEOUSLY, DOES NOT TRACK. VENT SETTINGS: AC MODE, VT 400, FIO2 30%, PEEP 5, RATE 16. INSPIRATORY WHEEZES HEARD TO BILATERAL UPPER LOBES AND DIMINISHED BREATH SOUNDS HEARD TO BILATERAL BASES OF LOBES UPON AUSCULTATION. CHEST RISE IS EQUAL AND SYMMETRICAL. S1 AND S2 HEART SOUNDS PRESENT. CVP 13. +3 PITTING EDEMA TO BUE AND +2 PITTING EDEMA TO BLE NOTED. BUE AND BLE PULSES ARE WEAK. ABD IS FLAT AND SOFT, HYPOACTIVE BOWEL SOUNDS X4 QUADRANTS. CENTRAL LINE TO RIJ IN PLACE, DRESSING CDI, ALL PORTS PATENT, INFUSING 150 ML/HR OF NS. OGT IN PLACE AND SECURED, PEPTAMEN 15 ML/HR AND FWF OF 110 ML Q6H. GASTRIC RESIDUAL 50 ML. GARDNER CATHETER IN PLACE, CLEAN AND PATENT, DRAINING YELLOW URINE. WOUNDS NOTED: COCCYX- PSEUDOMONAS AERUGINOSA, L HEEL- E.COLI AND PSEUDOMONAS AERUGINOSA, GROIN- PSEUDOMONAS AERUGINSOA, R ELBOW- MRSA, ALL DRESSINGS CDI. PT REPOSITIONED, ORAL CARE PROVIDED, HOB AT 30 DEGREES. BP 113/59, MAP 87, P 96, R 16, 02 100%, TEMP 98.4, NO S/S OF PAIN OR DISTRESS NOTED. WILL CONTINUE TO MONITOR FOR ANY ACUTE CHANGES.
--- NOTE | 2017-01-02 22:00 | NUR ---
RT AT PT BEDSIDE PER PROTOCOL
[2017-01-03] VITALS (17 sets, daily range): BP systolic 89–143; BP diastolic 40–94
--- NOTE | 2017-01-03 | NUR ---
RT AT PT BEDSIDE PER PROTOCOL.
--- NOTE | 2017-01-03 | NUR ---
REASSESSMENT IS COMPLETED PT IS INTUBATED, NO SEDATION. PT OPENS EYES SPONTANEOUSLY. PT CANNOT FOLLOW COMMANDS. TACTILE STIMULUS. VENTED AT SAME SETTINGS, INSPIRATORY WHEEZES TO BILATERAL UPPER LOBES AND DIMINISHED TO BILAT BASES OF LOBES. EDEMA TO BUE AND BLE. RIJ INTACT. OGT IN PLACE. BOWEL SOUNDS HYPOACTIVE X4 QUADRANTS. PEPTAMEN RUNNING AT SAME SETTINGS. GARDNER CATHETER IN PLACE, CDI. SAFETY IN PLACE. CONTACT PRECAUTIONS. WILL CONTINUE TO MONITOR FOR ANY ACUTE CHANGES.
--- NOTE | 2017-01-03 02:09 | NUR ---
PT REPOSITIONED PER PROTOCOL. NO S/S OF PAIN OR DISTRESS AT THIS TIME. WILL CONTINUE TO MONITOR FOR ANY ACUTE CHANGES.
--- NOTE | 2017-01-03 04:02 | NUR ---
GASTRIC RESIDUAL 20 ML. INCREASED PEPTAMEN AF 25 ML/HR WITH FWF 110 Q6H.
--- NOTE | 2017-01-03 04:09 | NUR ---
REASSESSMENT COMPLETED. PT IS INTUBATED WITH NO SEDATION. ETT IN PLACE AND SECURED, 7.0 ETT/23 LL, ATTACHED TO VENT. PT UNABLE TO FOLLOW COMMANDS, CANNOT MAKE NEEDS KNOWN. INSPIRATORY WHEEZES HEARD TO BILATERAL UPPER LOBES, DIMINISHED BREATH SOUNDS HEARD TO BASES OF LOBES. NO CHANGE TO VENT SETTINGS. PROVIDED ORAL CARE AND SUCTION. SUCTIONED SCANT AMOUNT OF THICK SECRETIONS. RIJ IN PLACE, DRESSING CDI, ALL PORTS PATENT AND INFUSING, +3 PITTING EDEMA TO BUE AND +2 TO BLE. CVP 11. S1 AND S2 HEART SOUNDS PRESENT. GARDNER CATHETER IN PLACE, DRAINING YELLOW URINE WITH SEDIMENTS NOTED. WOUND DRESSINGS CDI. NO S/S OF PAIN OR DISTRESS AT THIS TIME. WILL CONTINUE TO MONITOR FOR ANY ACUTE CHANGES.
[2017-01-03 05:22] LABS: BASOPHIL % 0.2 % (0-2); PLATELET COUNT 132 x10^3mcL (130-400); RED CELL DISTRIBUTION WIDTH 16.1 % (11.5-14.5)
[2017-01-03 05:40] LABS: CALCIUM 6.4 mg/dL (8.5-10.1); CARBON DIOXIDE 20.2 mmol/L (21-32); CHLORIDE SERUM 109 mmol/L (98-107); CREATININE SERUM 0.4 mg/dL (0.6-1.0); GLUCOSE SERUM 91 mg/dL (74-106); MAGNESIUM 1.7 mg/dL (1.8-2.4); PHOSPHOROUS 1.3 mg/dL (2.5-4.9); SODIUM SERUM 140 mmol/L (136-145)
[2017-01-03 05:41] LABS: POTASSIUM SERUM 2.3 mmol/L (3.5-5.1)
--- NOTE | 2017-01-03 06:39 | NUR ---
PT REPOSITIONED PER PROTOCOL. I&O COMPLETED. NO S/S OF PAIN OR DISTRESS.
--- NOTE | 2017-01-03 06:57 | NUR ---
DR RO AT BEDSIDE. UPDATES PROVIDED. NO NEW ORDERS AT THIS TIME.
--- NOTE | 2017-01-03 07:35 | NUR ---
RECEIVED PATIENT LACERATION. OPENED EYES TO PAIN PAINFUL STIMULI. INTUBATED. NON-VERBRAL. TELE#3 = ST W/ PVC'S; HR = 107. BREATHING SOUND DIMINISHED BLL'S. RHOCHI TO PAOLO UPPER LOBES. INTUBATED, ON AC; 30/16/400/5. EDEMA 3+ TO ALL EXTREMITIES. IVF FO NS 150CC/HR W/ K-RIDER 10MEQ/50CC INFUSING VIA CENTRAL LINE. CENTRAL LINE SITE CLEAN. ABD FLAT/SOFT. BOWEL SOUND ACTIVE; HAD DIARRHEA W/ LARGE AMT OF BROWNISH WATERY BM. GARDNER PATENT. OGT TUBE FEEDING WITH PEPTAMEN AF 25CC/HR W/ WATER 110CC/Q6H. RESIDUAL CHECK = 35CC, REPLACE. DRSG TO COCCYX, PAOLO ELBOWS, PAOLO HELLS W/ DRSG. ABRATION WOUND TO RT GROIN AREA, ALICE. CONTACT ISOLATION FOR MRSA (+) WOUND. ON AIR MATTRESS.
--- NOTE | 2017-01-03 07:45 | NUR ---
PATIENT WITH COPIOUS AMOUNT OF LIQUID STOOL. BUTCH RN, ADONAY RN AND MYSELF BEDSIDE TO CLEAN PATIENT AND INSERT RECTAL TUBE PER MD ORDER. PATIENT WAS TURNED TO SIDE AND RECTAL TUBE INSERTED, PATIENT WENT INTO SINUS TACH WITH RATE IN 180'S. PATIENT WAS PLACED BACK INTO SUPINE POSITION AND ADMINISTERED 2 MG MORPHINE IVP WITH HEART RATE/RHYTHM RETURNING TO SINUS TAC AT 114. DR RO PAGED AND MADE AWARE. RECTAL TUBE REMAINS IN PLACE WITH LARGE AMOUNT OF LIQUID STOOL. SPECIMEN OBTAINED FOR OB STOOL AND C-DIFF. KYLER CONTINUE TO MONITOR CLOSELY.
--- NOTE | 2017-01-03 08:31 | NUR ---
PATIENT IN A-FIB WITH HR 109. DR JIA STEPHEN AND MAD AWARE. WILL CONTINUE TO MONITOR.
--- NOTE | 2017-01-03 08:36 | NUR ---
EKG ORDERED. YESICA FROM CARDIO ON UNIT AND MADE AWARE. WILL CONTINUE TO MONITOR.
--- NOTE | 2017-01-03 08:42 | NUR ---
YESICA FROM CARDIO AT BEDSIDE FOR EKG.
--- NOTE | 2017-01-03 08:55 | NUR ---
EKG COMPLETED. PATIENT WITH UNSUSTAINED ST AND SVT. PAGED DR RO AND MADE AWARE. AWAITING NEW ORDERS.
--- NOTE | 2017-01-03 09:12 | NUR ---
DR RO ON UNIT. AM REPORTED WITH NEW ORDERS RECEIVED. DR RO TELEPHONED PATIENT'S DAUGHTER AREN AND ASKED FAMILY TO COME TODAY TO DISCUSS POC. AREN STATED THAT SHE WOULD BE IN SOMETIME TODAY HOWEVER WAS UNABLE TO GIVE A TIME.
--- NOTE | 2017-01-03 09:20 | NUR ---
DR. RO AWARE OF PATIENT'S POTASSIUM LEVEL =2.3 AND MAG LEVEL = 1.7 TODAY. NEW ORDER OF K RIDER 40 MEQ AND MAG RIDER 2GM STARTED. TELE SHOWED A FIB; HR = 100'S.
--- NOTE | 2017-01-03 10:37 | NUR ---
PATIENT IN SINUS RHYTHM WITH HR 96. WILL CONTINUE TO MONITOR.
--- NOTE | 2017-01-03 10:53 | NUR ---
MAG CARTAGENA 2GM GIVEN. PATIENT'S DAUGHTERS CAME TO SEE PATIENT. PATIENT OPENED EYES AND RESPONSED HER DAUGHTERS' CALL.
--- NOTE | 2017-01-03 11:10 | NUR ---
DR TILLMAN AT BEDSIDE TO SPEAK WITH PATIENT'S DAUGHTERS OLGA AND AREN. DR TILLMAN SPOKE AT LENGTH WITH DAUGHTERS POC AND PATIENT'S POOR PROGNOSIS. DAUGHTERS HAVE DECIDED TO MAKE PATIENT A DNR AT THIS TIME. DAUGHTERS WILL BE SPEAKING WITH PATIENT'S TONIGHT ABOUT POSSIBLE PALLIATIVE CARE. DR RO NOTIFIED AND CONSULT FOR DR PRICE TO BE PUT IN PLACE.
--- NOTE | 2017-01-03 11:30 | NUR ---
RECHECKED RESIDUAL OF OGT FEEDING = 15 CC, REPLACE. INCREASED TUBE FEEDING TO 35CC/HR OF PEPTAMEN AF PER ORDER.
--- NOTE | 2017-01-03 15:00 | NUR ---
HAD WOUND CARE AND DRSG CHANGE WITH CASSIDY MARTINEZN, CHARGE NURSE. CLEANED WOUND TO COCCYX AREA WITH WOUND CLEANSER AND NS. DRIED WOUND WITH 4X4 GAUZE. APPLIED HYDROGEL TO WOUND, THEN PARKED WITH 4X4 GAUZE, COVERED W/ OPTIFOAM DRSG. MODERATE SEROSANGUINOUS DRAINAGE SEEN. MORPHINE 2MG IVP GIVEN BEFORE DRSG CHANGE. DRSG CHANGED TO RT ELBOW, RT BACK AND LUE. BACTROBAN 2% OINTMENT APPLIED PER ORDER. OPTIFOAM DRSG TO PAOLO HELLS C/D/I. SCD AND HEEL PROTECTORS APPLIED.
[2017-01-03 15:50] LABS: CALCIUM 6.8 mg/dL (8.5-10.1); CARBON DIOXIDE 20.9 mmol/L (21-32); CHLORIDE SERUM 109 mmol/L (98-107); CREATININE SERUM 0.4 mg/dL (0.6-1.0); GLUCOSE SERUM 161 mg/dL (74-106); POTASSIUM SERUM 3.3 mmol/L (3.5-5.1); SODIUM SERUM 139 mmol/L (136-145)
--- NOTE | 2017-01-03 18:10 | NUR ---
NOTIFIED DR. RO W/ PATIENT'S I & O THIS SHIFT. INPUT 2170CC AND OUTPUT 550CC. PATIENT HAS EDEMA 3+ TO EXTREMITIES. NEW ORDER OF LASIX 40MG IVP GIVEN. PATIENT HAD NO SOB. HR = 112; B/P = 113/61. ENDORSED CARE TO NOC NURSE.
--- NOTE | 2017-01-03 19:43 | NUR ---
RECEIVED REPORT FROM DAY NURSE. WILL ASSUME ALL CARE.
--- NOTE | 2017-01-03 19:45 | NUR ---
PT IS INTUBATED, NO SEDATION. ETT IN PLACE AND SECURED, ATTACHED TO VENT, 7.0 ETT/23 LL. PT UNABLE TO FOLLOW COMMANDS, CANNOT MAKE NEEDS KNOWN. PT OPENS EYES SPONTANEOUSLY, UNABLE TO TRACK. PUPILS 2/SLUGGISH. VENT SETTINGS: AC MODE, FIO2 30%, VT 400, RATE 16, PEEP 5. CLEAR LUNG SOUNDS TO BILAT UPPER LOBES, DIMINISHED BREATH SOUNDS TO BILAT LOWER LOBES UPON AUSCULTATION. CHEST RISE IS EQUAL AND SYMMETRICAL. SUCTIONED SCANT AMOUNT OF THICK CLEAR SECRETIONS. ABD IS FLAT AND SOFT. HYPOACTIVE BOWEL SOUNDS X4 QUADRANTS. FLEXI-SEAL IN PLACE, CLEAN AND PATENT, BROWN MATTER NOTED IN TUBING. GARDNER CATHETER IN PLACE, CLEAN AND PATENT, DRAINING LIGHT YELLOW URINE. URINE CONTAINS E.COLI PER PRIOR REPORT. SKIN IS COOL AND DRY. WOUNDS: COCCYX- PSUEDUMONAS AERUGINOSA, L HEEL- E.COLI AND PSUEDOMONAS AERUGINOSA, GROIN- PSEDUMONAS AERUGINOSA, R ELBOW- MRSA. ALL WOUND DRESSINGS CDI. +3 PITTING EDEMA TO BUE AND +2 PITTING EDEMA TO BLE. BUE AND BLE PULSES WEAK. CONTACT PRECAUTIONS. ORAL CARE PROVIDED. HOB 30 DEGREES. WILL CONTINUE TO MONITOR FOR ANY ACUTE CHANGES.
--- NOTE | 2017-01-03 21:32 | NUR ---
HR UP TO 180 FOR 2 MIN. HR CURRENTLY 128. DR AVALOS PAGED.
--- NOTE | 2017-01-03 21:40 | NUR ---
UPDATES PROVIDED TO DR AVALOS. NEW ORDER FOR CARDIZEM 10 MG IVP ONCE. WILL CONTINUE TO MONITOR FOR ANY ACUTE CHANGES.
--- NOTE | 2017-01-03 23:45 | NUR ---
PT COCCYX DRESSING SOILED. ADMININSTERED MORPHINE 2MG IVP FOR PAIN. DRESSING CHANGED PER MD ORDER: HYDROGEL, ADAPTIC, GAUZE, OPTIFOAM, COVERED WITH DRY GUAZE. NO FOUL ODORS OR OTHER S/S OF INFECTION NOTED.
[2017-01-04] VITALS (19 sets, daily range): BP systolic 103–155; BP diastolic 47–102
--- NOTE | 2017-01-04 02:05 | NUR ---
RT AT BEDSIDE. NO CHANGES TO VENT SETTINGS.
--- NOTE | 2017-01-04 04:15 | NUR ---
REASSESSMENT COMPLETE. MORPHINE 2 MG IVP FOR PAIN ADMINISTERED. BED LINENS CHANGED. PERICARE PROVIDED. ORAL CARE PROVIDED. PT REPOSITIONED. WOUND DRESSING CHANGES TO BILAT ARMS AND GROIN AREA. ALL WOUND DRESSINGS ARE CDI. NO CHANGES TO VENT SETTINGS. WILL CONTINUE TO MONITOR FOR ANY ACUTE CHANGES.
[2017-01-04 05:23] LABS: PLATELET COUNT 114 x10^3mcL (130-400); RED CELL DISTRIBUTION WIDTH 16.2 % (11.5-14.5)
[2017-01-04 05:34] LABS: CALCIUM 6.8 mg/dL (8.5-10.1); CARBON DIOXIDE 21.9 mmol/L (21-32); CHLORIDE SERUM 110 mmol/L (98-107); CREATININE SERUM 0.4 mg/dL (0.6-1.0); GLUCOSE SERUM 111 mg/dL (74-106); MAGNESIUM 1.6 mg/dL (1.8-2.4); PHOSPHOROUS 1.3 mg/dL (2.5-4.9); SODIUM SERUM 141 mmol/L (136-145)
[2017-01-04 05:38] LABS: POTASSIUM SERUM 2.3 mmol/L (3.5-5.1)
[2017-01-04 05:39] LABS: BAND NEUTROPHIL 2 % (0-10); MONOCYTE 2 % (0-7); SEGMENTED NEUTROPHILS 84 % (37-75); rbc morphology (normal/abnorm) ABNORMAL (NORMAL)
[2017-01-04 05:42] LABS: PLATELET MORPHOLOGY FEW LARGE PLATELETS
--- NOTE | 2017-01-04 06:02 | NUR ---
DR LARRY AT BEDSIDE. UPDATES PROVIDED. ADDITIONAL 20 MEQ K+ RIDER ORDERED.
--- NOTE | 2017-01-04 07:43 | NUR ---
RECEIVED AWAKE, WITH EYES OPEN. CURRENTLY INTUBATED. TOLERATING WELL WITH SETTINGS. NO ACUTE RESP. DISTRESS NOTED. PT APPEARS COMFORTABLE IN BED. CORA. WELL WITH FEEDINGS. NO N/V NOTED. OGT IN PLACE. GARDNER CATH DRAINING YELLOW URINE. FLEXI SEAL WITYH MOD. DARK BROWN LIQ. STOOLS. DRESSINGS TO COCCYX AND EXTR.CHANGED THIS AM PER NOC SHIFT REPORT AND APPEARS INTACT. PT REPOSITIONED IN BED FOR COMFORT. SIDE RAILS UP. WILL CONTINUE W/PLAN OF CARE.
--- NOTE | 2017-01-04 08:00 | NUR ---
AM ROUNDS DONE BY DR. BRAMBILA AND MEDICAL TEAM, PLAN TO CONT. WITH CURRENT TX AND CONSULT DR. PRICE FOR HOSPICE EVAL.
--- NOTE | 2017-01-04 08:10 | NUR ---
PATIENT ROUNDS WITH DR. BRAMBILA AND RESIDENTS. UPDATES PROVIDED. PRIMARY NURSE AND CHARGE NURSE AT BEDSIDE. POC DISCUSSED. WILL CONTINUE TO MONITOR.
--- NOTE | 2017-01-04 08:56 | NUR ---
CARDIAZEM IVP GIVEN PRN FOR HR 177. BP 113/71
--- NOTE | 2017-01-04 09:14 | NUR ---
HR NOW 110. PT APPEARS COMFORTABLE. SUCTIONED PRN. ORAL CARE DONE.
--- NOTE | 2017-01-04 11:07 | NUR ---
RESTING AT THIS TIME, NO ACUTE DISTRESS. VS WNL. HR NOW 110.
--- NOTE | 2017-01-04 11:55 | NUR ---
PT REPOSITIONED FOR COMFORT. DRESSING OVER PAOLO. UPPER EXTR. CHANGED. BOTH ARM ELEVETED WITH PILLOW. NO ACUTE RESP.DISTRESS NOTED AT THIS TIME. NO S/S OF PAIN OR DISCOMFORT.
--- NOTE | 2017-01-04 13:33 | NUR ---
FAMILY AT BEDSIDE. PT IN NO DISTRESS. NO S/S OF PAIN OR DISCOMFORT. REPOSITIONED
--- NOTE | 2017-01-04 14:33 | NUR ---
RESTING COMFORTABLY IN BED. NO ACUTE RESP. DISTRESS NOTED. NO CHANGES IN VS. REPOSITIONED IN BED FOR COMFORT. SIDE RAILS UP.
--- NOTE | 2017-01-04 16:13 | NUR ---
WOUND CARE TO SACRAL DONE, SITE CLEANED WITH WOUNDS CLEANSER, HYDROGEL APPLIED AND COVERED WITH ADOPTIC FOAM. PERICARE AND GARDNER CATH CARE DONE. PT TOLERATED WELL. REPOSITIONED IN BED FOR COMFORT. SIDE RAILS UP.
[2017-01-04 16:33] LABS: CALCIUM 6.8 mg/dL (8.5-10.1); CARBON DIOXIDE 22.2 mmol/L (21-32); CHLORIDE SERUM 112 mmol/L (98-107); CREATININE SERUM 0.4 mg/dL (0.6-1.0); GLUCOSE SERUM 152 mg/dL (74-106); POTASSIUM SERUM 4.3 mmol/L (3.5-5.1); SODIUM SERUM 141 mmol/L (136-145)
--- NOTE | 2017-01-04 18:39 | NUR ---
REMAINS IN NO ACUTE DISTRESS, TOLERATING WELL WITH FEEDING, NO RESIDUAL NOTED, NO N/V. IVF INFUSING WELL VIA C RIJ TLC AND SITE CLEAR. BEDLINEN CHANGED, ALL WOUND DRESSING INTACT. PT REPOSITIONED IN BED FOR COMFORT. GARDNER CATH AND FLEXI SEAL REMAINS IN PLACE. NO S/S OF PAIN OR DISCOMFORT NOTED.SIDE RAILS UP. WILL BE ENDORSED TO INCOMING SHIFT.
--- NOTE | 2017-01-04 18:44 | NUR ---
PT RESTLESS, BITING ON ET TUBE, BP SLIGHTLY ELEVETED 149/80 AND HR 129. WILL MEDICATE WITH MORPHINE FOR PAIN PER PRN ORDER.
--- NOTE | 2017-01-04 19:00 | NUR ---
RECEIVED REPORT FROM CASSIDY WHITAKER, ALL QUESTIONS ADDRESSED, WILL TAKE OVER CARE.
--- NOTE | 2017-01-04 19:13 | NUR ---
PT APPEARS CALM AT THIS TIME. NO ACUTE DISTRESS NOTED, BP 148/71. WILL BE ENDORSED TO INCOMING SHIFT.
--- NOTE | 2017-01-04 19:30 | NUR ---
PT ON VENT, EYES OPEN SPONTANEOUSLY, PUPILS 2MM BRISK, GENERALIZED WEAKNESS, FULL PASSIVE ROM, LIMITED ACTIVE, NO S/S OF HEADACHE. AC MODE 7.0, 23LL, TRACHEA MIDLINE, NO DRAINAGE EENT, ORAL MUCOSA PINK AND DRY, ORAL CARE PROVIDED. FIO2 30, VT 400, RR 16, PEEP 5, CVP 4, CHEST WALL STABLE, NO CP, DIZZINESS, OR SYNCOPE, S1S2 AUSCULTATED. HR 123, BP 148/83, MAP 108, SKIN APPROPRIATE FOR ETHNICITY, WARM AND DRY, CAP REFILL <3, PULSES PALPABLE, EDEMA +2 BUE/BLE. NO CONTRACTURES, BL FOOT DROOP. ABD SOFT, ROUND NONTENDER, BOWEL SOUNDS ACTIVE X4, FLEXISEAL IN PLACE DRAINING TO GRAVITY. F/C IN PLACE DRAINING TO GRAVITY, URINE YELLOW, NO LABIAL EDEMS, OR VAGINAL DRAINAGE. WOUNDS SACRUM/L ELBOW/ TOES CDI, PT TURN Q2, WILL CONTINUE TO MONITOR.
[2017-01-05] VITALS (17 sets, daily range): BP systolic 99–145; BP diastolic 51–84
--- NOTE | 2017-01-05 01:54 | NUR ---
RT ROBERT AT BEDSIDE NO CHANGES WILL CONTINUE TO MONITOR.
--- NOTE | 2017-01-05 05:46 | NUR ---
BED BATH GIVEN CHG WIPES USED, GOWN AND GLOVES CHANGED, EDEMA BACK TO +3 BUE/BLE, WILL CONTINUE TO MONITOR.
[2017-01-05 05:51] LABS: CALCIUM 7.1 mg/dL (8.5-10.1); CARBON DIOXIDE 23.1 mmol/L (21-32); CHLORIDE SERUM 113 mmol/L (98-107); CREATININE SERUM 0.3 mg/dL (0.6-1.0); GLUCOSE SERUM 154 mg/dL (74-106); MAGNESIUM 1.8 mg/dL (1.8-2.4); PHOSPHOROUS 1.3 mg/dL (2.5-4.9); POTASSIUM SERUM 3.6 mmol/L (3.5-5.1); SODIUM SERUM 141 mmol/L (136-145)
--- NOTE | 2017-01-05 05:58 | NUR ---
DR ANTUNEZ AT BEDSIDE BS 154, TOLD TO HOLD INSULIN, WILL CONTINUE TO MONITOR.
[2017-01-05 06:04] LABS: BASOPHIL % 0.1 % (0-2)
[2017-01-05 06:05] LABS: PLATELET COUNT 83 x10^3mcL (130-400); RED CELL DISTRIBUTION WIDTH 16.7 % (11.5-14.5)
--- NOTE | 2017-01-05 07:04 | NUR ---
REPORT GIVEN TO CASSIDY TURCIOS WILL ENDORSE CARE.
--- NOTE | 2017-01-05 07:05 | NUR ---
REPORT RECEIVED FROM [facility] SHIFT RN RAVINDRA. UPDATES PROVIDED, ALL QUESTIONS ANSWERED ALL CONCERNS ADDRESSED. WILL ASSESS PATIENT SHORTLY.
--- NOTE | 2017-01-05 07:30 | NUR ---
PATIENT ASSESSED AT THIS TIME. VITAL SIGNS ARE TEMP 98.3, HR 106, O2 100, BP 137/69(88), RR 19. CVP IS 9 AT THIS TIME. PATIENT IS NONVERBAL, OPENS EYES SPONTANEOUSLY AND FLEXES TO PAIN. PUPILS ARE 2 MM AND FIXED ON THE RIGHT AND 2 MM AND SLUGGISH ON THE LEFT. PATIENT HAS NO SEDATION ON WITH HX OF CVA AND DEPRESSION. PATIENT IS ORALLY INTUBATED WITH 7.0 ETT THAT IS 23 LL. LUNG SOUNDS ARE CLEAR TO BUL AND DIM TO BBA. CHEST RISES SYMMETRICALLY AND CHEST WALL IS STABLE. PATIENT IS ON AC MODE WITH Vt 400, RATE 16, PEEP 5, FIO2 30%. PATIENT HAS RIJ IN PLACE WITH NS WITH 10 MEQ K RUNNING AT 70 ML/HR. PATIENT HAS OGT IN PLACE THAT IS INFUSING PEPTAMEN AF AT 45 ML/HR WITH 110 ML FWF Q6 HOURS. RESIDUAL OF 0 ML NOTED. NO N/V SEEN. NO SCLERAL EDEMA NOTED. PATIENT SKIN COLOR IS CONSISTENT WITH ETHNICITY. SKIN IS WARM AND MOIST. PERIPHERAL PULSES ARE STRONG TO BUE AND MODERATE TO BLE. CAP REFILL IS <3 SECONDS BILATERALLY. PATIENT HAS +3 EDEMA PAOLO. NO N/V NOTED. PATIENT ABDOMEN IS SOFT AND ROUND AND SHOWS NO SIGNS OF PAIN UPON PALPATION. BOWEL SOUNDS ARE HYPOACTIVE TO ALL 4 QUADRANTS. PATIENT HAS FLEXI-SEAL IN PLACE THAT IS DRAINING WATERY STOOL TO GRAVITY. PATIENT HAS GARDNER CATHETER IN PLACE THAT IS DRAINING YELLOW URINE TO GRAVITY. NO LABIAL EDEMA NOTED OR VAGINAL DISCHARGE. PATIENT HAS PRESSURE ULCERS TO PAOLO ELBOWS, PAOLO HEELS WITH HEEL PROTECTORS IN PLACE, SACRUM AND LEFT SHOULDER. ALL WOUNDS HAVE CLEAN DRY DRESSING INTACT. UNABLE TO FULLY ASSESS PSYCHOSOCIAL CONCERNS DUE TO PATIENT BEING NONVERBAL. WILL CONTINUE TO MONITOR PATIENT.
--- NOTE | 2017-01-05 07:50 | NUR ---
DR. KELLY IS BEDSIDE WITH PATIENT AT THIS TIME. UPDATES PROVIDED, PATIENT TO BEGIN CPAP NOW. WILL CONTINUE TO MONITOR PATIENT.
--- NOTE | 2017-01-05 07:50 | NUR ---
Pt PUT ON PSV 12, PEEP +5, FIO2 30% BY DR. EKLLY FOR CPAP TRIAL. Pt TOLERATING CPAP WELL. WILL CONTINUE TO MONITOR.
--- NOTE | 2017-01-05 08:15 | NUR ---
DR. BRAMBILA ROUNDING WITH RESIDENTS AT THIS TIME. UPDATES PROVIDED, NO NEW ORDERS RECEIVED WILL CONTINUE TO MONITOR PATIENT.
--- NOTE | 2017-01-05 08:30 | NUR ---
DR. LARRY BEDSIDE WITH PATIENT AT THIS TIME. IVF TO BE CHANGED TO NS WITH 20 MEQ K AT 70 ML/HR WILL CONTINUE TO MONITOR PATIENT.
--- NOTE | 2017-01-05 11:56 | NUR ---
NATASHA FROM [facility] ON UNIT TO ASSESS PATIENT. PATIENT UPDATE PROVIDED WITH ALL QUESTIONS AND CONCERNS ADDRESSED.
--- NOTE | 2017-01-05 13:33 | NUR ---
Follow up Nutrition Assessment Dx: Hypoxemic Respiratory Failure, Severe Sepsis with Shock PMHx: CVA with quadrapalegia and Aphasia, Alcoholic Liver Cirrhosis, Left-sided breast cancer s/p chemo/radiation, Depression, HTN Labs: BG 154 H, BUN 5 L, Cr 0.3 L, Phosphorous 1.3 L, H/H 7.2/22 L; (12/29) ALB 2.5 L, Lactic Acid 3.8 H Meds: D10, humulin R, magnesium sulfate, neutra-phos, protonix, reglan, NS IV, theragran, vitamin C 500 mg BID, zofran Current Nutrition Support: TF Peptamen AF at 15 ml/hr, increase 10 ml Q4h to goal 45 ml/hr, Free Water Flush: 110 ml Q6h via NGT (x6 days) TF Intakes: (01/03) 503 ml; (01/04) 640 ml; (01/05) 450 ml Residuals: (01/01) 60 ml; (01/02) 100 ml, 300 ml; (01/05) 0 ml I/O: 3220/1650 (+1570 ml) NGT Output: (01/03) 0 ml; (01/05) 50 ml Weights: (12/30) 120 lb, 55 kg (Bedscale); (01/02) 139 lb, 63 kg Weight Changes: +19 lb within 3 days - Possible fluid shifts Skin: Stage IV sacral decubitus ulcer, pressure ulcers to sacrum, bilateral heels, bilateral elbows, R shoulder, skin tears to L forearm. Shaheen 7. Edema: 3+ BLE GI: Abd soft, flat. Hypoactive bowel sounds. Last BM 01/05. Flexiseal. Watery stools. Stool Output: (01/03) 0 ml; (01/04) 250 ml; (01/05) 100 ml, 300-350 ml Problem with: N: None. V: None. D: None. C: None. Per doctor's progress note 01/05, no acute events overnight, Dr. Urbina saw pt yesterday, [facility] evaluation and hospice evaluation, tolerating CPAP, possible weaning today and extubation; Pt with septic shock secondary to aspiration pneumonia vs UTI vs decubitus ulcers, s/p ET tube insertion (6/6/17 at 1555), s/p R IJ central line (12/29/16), stage IV sacral decubitus ulcer s/p excisional debridement POD day 3 (12/31/16) by Dr. Cisneros. Per Bed Huddle reports, family is leaning towards having hospice for pt. Pt was seen +intubated, +ETT to vent support, +OGT in place, TF Peptamen AF seen infusing at goal 45 ml/hr. Per RN, tolerating TF with no residuals, however, having a lot of watery loose stools. RN also stated that family is meeting with java software developer at home to determine pt's status. Spoke with Dr. Reilly regarding recommendations, doctor is agreeable. Current TF regimen at goal 45 ml/hr provides 1296 kcal, 82 gm protein, 1313 ml free water daily. Meets 98% of estimated caloric needs and 103% of estimated protein needs. Adequate. Estimated Nutritional Needs Based on IBW 88 lb, 40 kg Energy: 3492-4798 kcal/day (33-35 kcal/kg for Septic Shock, Wound Healing) Protein: 60-80 gm/day (1.5-2 gm/kg for Septic Shock, Wound Healing) Fluid: 6633-2856 ml/day (33-35 ml/kg for Septic Shock, Wound Healing) or per doctor Nutrition Diagnosis 1. Malnutrition related to increased protein and energy needs secondary to hypercatabolism, impaired skin integrity as evidenced by pt with multiple wounds, is intubated and sedated, and significant rib cage and temporal wasting -- *Ongoing 2. Inadequate enteral nutrition infusion related to possible intolerance as evidenced by TF only running at 15ml/hr and GRV at 100 ml, 300ml -- *Resolved, TF infusing at goal 45 ml/hr Intervention 1. Note that pt on OGT feedings x6 days. 2. Continue TF Peptamen AF at 15 ml/hr, increase 10 ml Q4h to goal 45 ml/hr, Free Water Flush: 110 ml Q6 via OGT per doctor. 3. Recommend Banatrol BID (80 kcal, <2 g protein) for watery loose stools. Monitor/Evaluate Previous Goal: TF meeting at least 50% of needs with tolerance - Met; Skin integrity is maximized during LOS - Ongoing; GRV less than 250ml x2 - Met Goal: TF intakes meeting >80% of estimated needs with tolerance; Wound Healing; Formed BM by F/U Monitor: TF intakes/tolerance, labs, skin integrity, GI function, weights F/U in 3-5 days as MODERATE risk (01/08-01/10)
--- NOTE | 2017-01-05 15:15 | NUR ---
PATIENT WITH HR IN 190'S. ADMINISTER 2 MG MORPHONE IVP FOR PAIN. WILL CONTINUE TO MONITOR.
--- NOTE | 2017-01-05 16:00 | NUR ---
DR. LARRY BEDSIDE WITH PATIENT AT THIS TIME. UPDATES PROVIDED, ALL QUESTIONS ANSWERED ALL CONCERNS ADDRESSED. DR. LARRY ATTEMPTED TO OBTAIN CONSENT FROM OLGA AND AREN (PATIENT'S DAUGHTERS) BUT WAS UNABLE TO REACH THEM REGARDING A POSSIBLE DEBRIDEMENT. WILL CONTINUE TO MONITOR PATIENT.
--- NOTE | 2017-01-05 16:07 | NUR ---
DR LARRY TELEPHONED PATIENT'S DAUGHTERS OLGA AND AREN TO OBTAIN CONSENT FOR DEBRIDEMENT OF WOUNDS. NEITHER DAUGHTERS ANSWERED TELEPHONE CALL.
--- NOTE | 2017-01-05 16:30 | NUR ---
PATIENT TO BE TRANSFERRED TO TELEMETRY PER MD ORDER. REPORT CALLED TO CHRIS BENJAMIN WITH ALL QUESTIONS AND CONCERNS ADDRESSED. PATIENT'S SISTER AT BEDSIDE AND MADE AWARE OF TRANSFER. ONLY BELONGINGS PATIENT HAD WERE CELL PHONE DIRECTOR OF MOBILE MARKETING AND UNDERGARMET WHICH WAS GIVEN TO HER SISTER MS JOEL.
--- NOTE | 2017-01-05 17:30 | NUR ---
PATIENT TAKEN OFF OF CPAP AT THIS TIME. WILL CONTINUE TO MONITOR PATIENT.
--- NOTE | 2017-01-05 19:25 | NUR ---
REPORT GIVEN TO NOC SHIFT RN. UPDATES PROVIDED, ALL QUESTIONS ANSWERED ALL CONCERNS ADDRESSED. WILL CONTINUE TO MONITOR PATIENT.
--- NOTE | 2017-01-05 22:34 | NUR ---
RECEIVED PT ORALLY INTUBATED ETT 7.0 LL 23, NO SEDATION. VENT SETTINGS: AC MODE TV 400, RATE 16, PEEP 5, FIO2 25% PT NONVERBAL, OPENS EYES SPONTANEOUSLY, AND FLEXES TO PAIN. RT PUPIL 2MM FIXED, LT SLUGGISH. PATIENT HAS RIJ IN PLACE WITH NS WITH 10 MEQ K RUNNING AT 70 ML/HR. OGT IN PLACE THAT IS INFUSING PEPTAMEN AF AT 45 ML/HR WITH 110 ML FWF Q6 HOURS. RESIDUAL 0 ML NOTED. LUNG SOUNDS CLEAR BUL, DIMINISHED BLL. SYMMETRICAL CHEST EXPANSION. CARDIAC SCOPE SHOWS ST, AUSCULTATED S1, S2. SKIN IS THIN AND FRAGILE DISCOLORATION BUE/BLE, CAP REFILL >3 SECONDS. RADIAL PULSES MODERATE, PEDAL PULSES WEAK. + EDEMA PAOLO. ABDOMEN SOFT, ROUND, HYPOACTIVE BOWEL SOUNDS X 4. FLEXI-SEAL IN PLACE DRAINING TO GRAVITY, LOOSE BROWN STOOL NOTED. GARDNER CATHETHER IN PLACE DRAINING TO GRAVITY, YELLOW URINE NOTED. NO VAGINAL DISCHARGE AT THIS TIME. PRESSURE ULCERS TO PAOLO ELBOWS, PAOLO HEELS WITH HEEL PROTECTORS IN PLACE, SACRUM AND LT SHOULDER. WOUND DRESSINGS, CDI. UNABLE TO ASSESS PSYCHOSOCIAL STATUS DUE TO INTUBATION, NONVERBAL.
[2017-01-06] VITALS (18 sets, daily range): BP systolic 105–169; BP diastolic 56–89
[2017-01-06 05:13] LABS: BASOPHIL % 0.1 % (0-2)
[2017-01-06 05:14] LABS: PLATELET COUNT 102 x10^3mcL (130-400); RED CELL DISTRIBUTION WIDTH 16.7 % (11.5-14.5)
--- NOTE | 2017-01-06 05:17 | NUR ---
AM FULL BATH WITH SHIRLEY WIPES AND GARDNER CARE DONE PER PROTOCOL.PARTIAL LINEN CHANGE DONE.FLEXISEAL BAG CHANGED STILL WITH LOOSE DARK STOOL,Z-GUARD TO SACRAL AREA PLACED.REPOSITIONED WITH PILLOW SUPPORT ON BACK WITH PT ON ISOGEL BED.BILATERAL FLEX BOOTS INPLACE.
[2017-01-06 05:24] LABS: CALCIUM 7.3 mg/dL (8.5-10.1); CARBON DIOXIDE 24.1 mmol/L (21-32); CHLORIDE SERUM 111 mmol/L (98-107); CREATININE SERUM 0.3 mg/dL (0.6-1.0); GLUCOSE SERUM 127 mg/dL (74-106); MAGNESIUM 1.8 mg/dL (1.8-2.4); PHOSPHOROUS 1.9 mg/dL (2.5-4.9); POTASSIUM SERUM 3.6 mmol/L (3.5-5.1); SODIUM SERUM 143 mmol/L (136-145)
--- NOTE | 2017-01-06 06:15 | NUR ---
PT SEEN BY UPDATED ON PTS STATUS.
--- NOTE | 2017-01-06 07:17 | NUR ---
REPORT RECEIVED FROM YARED BENJAMIN.
--- NOTE | 2017-01-06 07:18 | NUR ---
REPORT GIVEN TO JOHANN RN. ALL CONCERNS AND QUESTIONS ADDRESSED.
--- NOTE | 2017-01-06 07:18 | NUR ---
REPORT RECEIVED FROM BINA BENJAMIN.
--- NOTE | 2017-01-06 07:30 | NUR ---
PT IS INTUBATED, NOT ON SEDATION AT THIS TIME. PT RESPONDS TO NOXIOUS STIMULI, NO PURPOSEFUL MOVEMENT NOTED. EYES OPEN SPONT, DOES NOT TRACK. PERRLA, 2 MM BRISK. SIZE 7 ETT INTACT AND SECURED, 23 @ LL. ETT TO VENT, AC/VCV: RATE 16, TV 400, PEEP 5, FIO2 25%. BREATHING IS EVEN AND UNLABORED. LUNG SOUNDS ARE CLEAR TO BUL, DIMINISHED TO BASES. S1 S2 HEART SOUNDS AUSCULTATED. SINUS TACH WITH PACS. PULSES ARE WEAK X4. CAP REFILL > 3 S. SKIN IS WARM AND PALE. ABD IS SOFT AND ROUNDED. OGT INFUSING PEPTAMEN AF @ 45 CC/HR, 110 CC FWF Q6H. TOLERATING WELL, GRV = 0. BOWEL SOUNDS ACTIVE X4Q. GARDNER INTACT AND DRAINING VIA GRAVITY. URINE IS CLEAR, YELLOW, FAIR OUTPUT. R IJ CVC INTACT, PORTS PATENT, DRESSING CDI. INFUSING NS W/ 15% KCL @ 70 CC/HR. +2 EDEMA TO BUE AND BLE. WOUNDS TO SACROCOCCYX, BUE, L HEEL, R GROIN. REDNESS TO R HEEL. DRESSINGS CDI. BOOTS ON, SCD ON. NO S/SX OF PAIN AT THIS. REPOSITIONED Q2H. ORAL CARE DONE. HOB ELEVATED, BED LOW, SIDE RAILS UP X3, CALL LIGHT IN REACH. WILL CONTINUE TO MONITOR.
--- NOTE | 2017-01-06 08:18 | NUR ---
Pt PLACED ON PSV 12, PEEP +5, FIO2 25% AT THIS TIME. RN NOTIFIED. WILL MONITOR.
--- NOTE | 2017-01-06 08:20 | NUR ---
TUBE FEEDING SUSPENDED AT THIS TIME FOR CPAP.
--- NOTE | 2017-01-06 08:20 | NUR ---
PT PUT ON CPAP BY ASHU RT: PEEP 5, PSV 12, FIO2 25%.
--- NOTE | 2017-01-06 09:14 | NUR ---
PATIENT APPEARS TO BE IN PAIN WITH HR 110 AND CONTINUOUSLY BUCKING VENT. ADMINISTER 2MG MORPHINE IVP FOR PAIN.
--- NOTE | 2017-01-06 09:30 | NUR ---
SPOKE WITH PATIENT'S DAUGHTER AREN AND REVIEW POC THAT DR PRICE REVIEWED WITH MYSELF AND NORMA BENJAMIN. AREN STATED THAT SHE WAS IN AGREEMENT OF THE PLAN AND ASKED FOR DR PRICE TO TELEPHONE HER FATHER TO DISCUSS WITH HIM. DR PRICE PAGED AND PROVIDED NUMBER FOR [facility].
--- NOTE | 2017-01-06 10:03 | NUR ---
DR PRICE TELEPHONED THE UNIT AND INFOMED ME THAT SHE SPOKE WITH PATIENT'S NELSON AND REVIEWED POC OF HOSPICE/TRACH & PEG. [facility] IS NOT IN AGREEMENT TO REMOVE THE ETT IF PATIENT HAS A POSSIBLITY OF EXPIRING. DR PRICE EXPLAINED TO HIM THAT TRACH AND PEG IS THE ONLY OTHER OPTION RATHER THAN HOSPICE AND A DECISION MUST BE MADE BY 1600 TODAY HOW TO PROCEED WITH POC. WILL INFORM ODETTE LEVINE OF DISCUSSION.
--- NOTE | 2017-01-06 10:24 | NUR ---
TUBE FEEDING RESUMED @ 45 CC/HR.
--- NOTE | 2017-01-06 10:25 | NUR ---
PATIENT'S DAUGHTER OLGA TELEPHONED UNIT AFTER SPEAKING WITH PATIENT'S . DR KELLY ON UNIT AND TELEPHONE CALLED TRANSFERRED TO DR KELLY SO SHE MAY REVIEW POC AND HOSPICE WITH OLGA. WILL CONTINUE TO MONITOR.
--- NOTE | 2017-01-06 13:00 | NUR ---
SPOKE WITH PATIENT'S DAUGHTER OLGA TO MAKE ARRANGEMENT FOR FAMILY MEETING WITH DR PRICE TOMORROW. FAMILY HAS AGREED TO MEETING AT 0730 01/07/17. AWAITING CONFIRMATION FROM DR PRICE.
--- NOTE | 2017-01-06 15:09 | NUR ---
0730 MEETING TOMORROW 01/07/[address] PRICE. ODETTE LEVINE DIRECTOR OF CASE MANAGEMENT WILL ATTEND. WILL ENDORSE TO ONCOMING LIQUEFACTION PLANT OPERATOR.
--- NOTE | 2017-01-06 15:49 | NUR ---
Follow-up Nutrition Assessment Dx: Hypoxemic Respiratory Failure, Severe Sepsis with Shock PMHx: CVA with quadrapalegia and Aphasia, Alcoholic Liver Cirrhosis, Left-sided breast cancer s/p chemo/radiation, Depression, HTN Labs: BG 127 H, FSBS:116-125, BUN 7 L, Cr 0.3 L, Phosphorous 1.9 L, H/H 7.3/22 L; (12/29) ALB 2.5 L, Lactic Acid 3.8 H Meds: Humulin R, neutra-phos, protonix, reglan TID, theragran, vitamin C 500mg BID, morphine, eliquis, KCl- in NS Current Nutrition Support: TF Peptamen AF at 15 ml/hr, increase 10 ml Q4h to goal 45 ml/qg=5909 kcal, 82 gm protein, 873 ml free water daily. Banatrol 2 packets daily. Free Water Flush: 110 ml Q6h via OGT (x7 days) TF Intakes: (01/03) 503 ml; (01/04) 640 ml; (01/05) 450 ml; 522ml= 626kcals (45%), 40g protein (50%) (01/06) Residuals: (01/01) 60 ml; (01/02) 100 ml, 300 ml; (01/05) 0 ml; (01/06) 0ml I/O: 1903/900 (+1003ml) NGT Output: (01/03) 0 ml; (01/05) 50 ml; 0ml (01/06) Weights: (12/30) 120 lb, 55 kg (Bedscale); (01/02) 139 lb, 63 kg; (01/06) 134kg, 294lbs Weight Changes: +155 lb within 4 days - likely d/t bedscale error, fluid shifts Skin: Stage IV sacral decubitus ulcer, pressure ulcers to sacrum, bilateral heels, bilateral elbows, R shoulder, skin tears to L forearm. Shaheen 7. Edema: +2 BLE and BUE GI: Abd soft, flat. Hypoactive bowel sounds. Last BM 01/05. Flexiseal. Watery stools. Stool Output: (01/03) 0 ml; (01/04) 250 ml; (01/05) 100 ml, 300-350 ml; 500ml (01/06) Problem with: N: None. V: None. D: Yes. C: None. Per doctor's progress note 01/06- No acute events overnight. Patient's family to meet with hospice and mary kay clemons. FiO2 reduced to 25%. Possible extubation pending Dr. Carrillo. Patient remains tachycardic with many loose bowel movements with flexy seal. Benjamin drainnig to gravity. Right IJ c/d/i and patent. Patient evaluated at bedside. Patient intubated but opens eyes. Does not track nor indicate that she understands basic speech. Patient baseline is aphasic. Pt with septic shock secondary to aspiration pneumonia vs UTI vs decubitus ulcers, s/p ET tube insertion (12/29/16 at 1555), s/p R IJ central line (12/29/16), stage IV sacral decubitus ulcer s/p excisional debridement POD day 3 (12/31/16) by Dr. Cisneros. As per RN note 01/06- spoke w/ pt's daughter Kia to make arrangement for family meeting w/ Dr. Urbina tomadolph. Awaiting confirmation from Dr. Urbina. Pt was seen +intubated, +ETT to vent support, +OGT in place, is on contact isolation, no family present, the RD observed Peptamen AF running as ordered, spoke to RN, reports the pt has been tolerating 5 hrs of CPAP, the plan will be to have the family meeting at 7:30am tomorrow, the pt is tolerating TF, has not given Banatrol as of yet, the pt is still having loose stools. Estimated Nutritional Needs Based on IBW 88 lb, 40 kg Energy: 7755-7582 kcal/day (33-35 kcal/kg for Septic Shock, Wound Healing) Protein: 60-80 gm/day (1.5-2 gm/kg for Septic Shock, Wound Healing) Fluid: 1684-8764 ml/day (33-35 ml/kg for Septic Shock, Wound Healing) or per doctor Nutrition Diagnosis 1. Malnutrition related to increased protein and energy needs secondary to hypercatabolism, impaired skin integrity as evidenced by pt with multiple wounds, is intubated and sedated, and significant rib cage and temporal wasting -- *Ongoing 2. Inadequate enteral nutrition infusion related to TF not running continuously at goal rate as evidenced by TF meeting 45% of kcals and 50% of protein needs- *Ongoing d/t CPAP trials Intervention 1. C/W Peptamen AF at goal rate of 45 ml/hr to provide 1296 kcal, 82 gm protein, 873 ml free H2O. Free Water Flush: 110 ml Q6 via OGT (total free H2O 1313ml) or per MD. Banatrol BID (80 kcal, <2 g protein) for watery loose stools. 2. If the pt is able to be extubated, consider MEDICAID PLAN COMPLIANCE DIRECTOR eval. 3. If the pt is able to tolerate extubation, consider 2gm Na+ diet- consistency as per MEDICAID PLAN COMPLIANCE DIRECTOR. 4. If long-term Enteral Nutrition is required, consider Isosource 1.5 at goal rate of 40ml/hr to provide 1440kcals, 65g protein, and 733ml free H2O. Free H2O Flush of 110ml q4hr (total free H2O 1393ml) or per MD. Monitor/Evaluate Previous Goal: TF intakes meeting >80% of estimated needs with tolerance-Not Met; Wound Healing-Ongoing; Formed BM by F/U-Not Met Goal: TF intakes meeting >80% of estimated needs with tolerance; Wound Healing; Nutrition POC in line w/ Medical POC Monitor: TF intakes/tolerance, labs, skin integrity, GI function, weights, medical POC F/U in 3-5 days as MODERATE risk (01/09-01/11)
--- NOTE | 2017-01-06 15:53 | NUR ---
1. C/W Peptamen AF at goal rate of 45 ml/hr to provide 1296 kcal, 82 gm protein, 873 ml free H2O. Free Water Flush: 110 ml Q6 via OGT (total free H2O 1313ml) or per MD. Banatrol BID (80 kcal, <2 g protein) for watery loose stools. 2. If the pt is able to be extubated, consider SUPERVISORY AIDE eval. 3. If the pt is able to tolerate extubation, consider 2gm Na+ diet- consistency as per SUPERVISORY AIDE. 4. If long-term Enteral Nutrition is required, consider Isosource 1.5 at goal rate of 40ml/hr to provide 1440kcals, 65g protein, and 733ml free H2O. Free H2O Flush of 110ml q4hr (total free H2O 1393ml) or per .
--- NOTE | 2017-01-06 19:05 | NUR ---
RECEIVED REPORT FROM NORMA BENJAMIN. ALL QUESTIONS AND CONCERNS ANSWERED. WILL ASSUME ALL CARE.
--- NOTE | 2017-01-06 19:07 | NUR ---
REPORT GIVEN TO TAM BENJAMIN AND EDWIN BENJAMIN.
--- NOTE | 2017-01-06 19:30 | NUR ---
PT IS INTUBATED, NO SEDATION. ETT IN PLACE AND SECURED, 7.0 ETT/23 LL, ATTACHED TO VENT. OGT IN PLACE. RIJ IN PLACE, DRESSING CDI, ALL PORTS PATENT AND INFUSING WELL. VENT SETTINGS: AC MODE, FIO2 25%, RATE 16, PEEP 5. CLEAR LUNG SOUNDS TO BILAT UPPER LOBES AND DIMINISHED BREATH SOUNDS TO BILAT BASES OF LOBES. CHEST RISE IS EQUAL AND SYMMETRICAL. NO COUGH NOTED. ABD IS FLAT AND SOFT, HYPOACTIVE BOWEL SOUNDS X4 QUADRANTS. FLEXI-SEAL IN PLACE AND PATENT, DARK BROWN AND GREEN MATTER NOTED IN TUBING. PEPTAMEN AF AT 45 ML/HR WITH FWF 110 ML Q6H. GARDNER CATHETER IN PLACE, CLEAN AND PATENT, DRAINING YELLOW URINE. LABIAL EDEMA NOTED. +3 PITTING EDEMA TO BUE AND +2 PITTING EDEMA TO BLE. PULSES ARE WEAK TO BUE AND BLE. <3 CAP REFILL TO BUE BLE. SKIN IS COOL AND DRY. WOUNDS: COCCYX- PSEDUMONAS AERUGINOSA, L HEEL- E.COLI/PSEDOMONAS, GROIN- PSUEDOMONAS, R ELBOW- MRSA. ALL WOUND DRESSING ARE CDI. ORAL CARE PROVIDED. HOB AT 30 DEGREES. BP 113/71, MAP 92, HR 109, RR 16, TEMP 98.5, O2 100%. WILL CONTINUE TO MONITOR FOR ANY ACUTE CHANGES.
--- NOTE | 2017-01-06 22:26 | NUR ---
PT REPOSITIONED PER PROTOCOL. HEELS AND ELBOWS OFFLOADED WITH PILLOWS/HEEL PROTECTORS.
[2017-01-07] VITALS (13 sets, daily range): BP systolic 11–174; BP diastolic 52–102
--- NOTE | 2017-01-07 00:06 | NUR ---
REASSESMENT COMPLETED. NO CHANGES TO VENT SETTINGS. ORAL CARE PROVIDED. SUCTIONED SCATNT AMOUNT OF THICK CLEAR SECRETIONS. PT TOLERATED WELL. PT REPOSITIONED PER PROTOCOL. HOB AT 30 DEGREES. BP 164/102, MAP 116, HR 108, TEMP 98.5, O2 100%, CVP 7. WILL CONTINUE TO MONITOR FOR ANY ACUTE CHANGES.
--- NOTE | 2017-01-07 02:00 | NUR ---
PT REPOSITIONED, HEELS AND ELBOWS OFFLOADED PER PROTOCOL. NO S/S OF PAIN OR DISTRESS NOTED. WILL CONTINUE TO MONITOR FOR ANY ACUTE CHANGES.
[2017-01-07 05:06] LABS: PLATELET COUNT 152 x10^3mcL (130-400)
[2017-01-07 05:15] LABS: CALCIUM 7.5 mg/dL (8.5-10.1); CHLORIDE SERUM 109 mmol/L (98-107); CREATININE SERUM 0.3 mg/dL (0.6-1.0); GLUCOSE SERUM 114 mg/dL (74-106); MAGNESIUM 1.7 mg/dL (1.8-2.4); PHOSPHOROUS 2.7 mg/dL (2.5-4.9); POTASSIUM SERUM 3.7 mmol/L (3.5-5.1); SODIUM SERUM 140 mmol/L (136-145)
--- NOTE | 2017-01-07 05:15 | NUR ---
REASSESSMENT COMPLETED. PT REPOSITIONED PER PROTOCOL, WITH HEELS AND ELBOWS OFFLOADED. NO CHANGES TO VENT SETTINGS. CHANGED WOUND DRESSINGS. PERFORMED BED BATH. ORAL CARE PROVIDED. LINENS CHANGED. PT MADE COMFORTABLE. HOB 30 DEGREES. WILL CONTINUE TO MONITOR FOR ANY ACUTE CHANGES.
[2017-01-07 05:19] LABS: RED CELL DISTRIBUTION WIDTH 16.7 % (11.5-14.5)
[2017-01-07 05:36] LABS: BAND NEUTROPHIL 4 % (0-10); METAMYELOCTE 3 % (0-2); MONOCYTE 4 % (0-7); SEGMENTED NEUTROPHILS 72 % (37-75)
[2017-01-07 05:38] LABS: PLATELET MORPHOLOGY LARGE PLATELET SEEN; rbc morphology (normal/abnorm) ABNORMAL (NORMAL)
--- NOTE | 2017-01-07 06:20 | NUR ---
PT REPOSITION IN BED PER PROTOCOL. HOB AT 30 DEGREES. WILL ENDORSE ALL CARE TO ONCOMING RN.
--- NOTE | 2017-01-07 07:30 | NUR ---
RECEIVED THE PATIENT INTUBATED WITH AC MODE: VT 400, FIO2 25%, PEEP 5, AND RATE 16 WITHOUT SEDATION. PATIENT OPEN EYES SPONTANEOUSLY. ETT AND OGT IN PLACE AND SECURED T LEFT SIDE OF THE MOUTH. ORAL CARE WAS PROVIDED. OGT FEEING WITH PEPTAMEN AF AT 45CC/HR. RESIDUAL 5CC AND REPLACED. TELE #5 READ SINUS TACHYCARDIA. CENTRAL LINE TO RIGHT NECK WITH DRESSING INTACT. NS WITH 20 MEQ IN BAG WAS INFUSING. F/C TO GRAVITY DRAINING LIGHT DASIA URINE. FLEXISEAL IN PLACE DRAINING DARK BROWN GREEN LIQUID STOOL. ALL THE WOUNDS WERE COVERS WITH DRESSING. HEEL PROTECTORS IN PLACE. SIDE RAILS UPX3. BED WAS AT LOWEST POSITION AND ALARM WAS ON. PATIENT WAS ON AIR MATTRESS.
--- NOTE | 2017-01-07 07:40 | NUR ---
DR. PRICE AND THE CHARGE NURSE ARE HAVING THE MEETING WITH THE FAMILY TO DISCUSS THE PLAN OF CARE FOR THE PATIENT AT THIS TIME.
--- NOTE | 2017-01-07 08:20 | NUR ---
DR HOLLIDAY, INTERNS AND RESIDENTS ROUNDING AT THIS TIME. UPDATES PROVIDED, NO NEW ORDERS RECEIVED.
--- NOTE | 2017-01-07 08:26 | NUR ---
FAMILY CONFERENCE WITH DR ALBERT IVAN, PT'S FAMILY ENDED AT THIS TIME. PT'S FAMILY STATES THEY WOULD LIKE PT TO BE EXTUBATED WITH THE GOAL OF TRANSFERRING HOME. SHOULD PT GO INTO RESPIRATORY DISTRESS, COMFORT MEASURES WILL BE PROVIDED.
--- NOTE | 2017-01-07 08:30 | NUR ---
DR SINGH AND RESIDENTS ROUNDING AT THIS TIME. UPDATES PROVIDED.
--- NOTE | 2017-01-07 10:15 | NUR ---
DR. LARRY-RESIDENT WAS AWARE OF THE PATIENT'S LAB RESULT THIS MORNING.
--- NOTE | 2017-01-07 12:06 | NUR ---
ASSESSMENT WAS IMPLEMENTED. ORAL CARE AND SUCTION WERE PROVIDED TO THE PATIENT.
--- NOTE | 2017-01-07 13:50 | NUR ---
[facility] STAFF IN TO EVALUATE THE PATIENT.
--- NOTE | 2017-01-07 16:05 | NUR ---
REASSESSMENT WAS IMPLEMENTED. PATIENT LETHARGIC AND CLOSING EYES. EYES OPEN TO TACTILE STIMULUS AND RESPOND TO LIGHT. PATIENT WAS ON CPAP AT PSV 12 AND PEEP 5. TOLERATED WELL WITH OGT FEEDING AT 45CC/HR. FLUSHED 110 ML OF WATER Q6H. CALL LIGHT WITHIN REACH. SIDE RAILS UP X3. BED WAS AT LOWEST POSITION AND ALARM WAS ON.
--- NOTE | 2017-01-07 16:27 | NUR ---
SPOKE WITH DR PRICE AND RECEIVED ORDER TO EXTUBATE PT AND TITRATE OXYGEN TO MAINTAIN SATs >92%. HUSSAIN RT AT BEDSIDE, PT EXTUBATED. WILL MONITOR.
--- NOTE | 2017-01-07 16:27 | NUR ---
WHEN THE PATIENT WAS EXTUBATED; BOTH ETT AND OGT WERE REMOVED BY RT STAFF. THE PATIENT WAS ON NASAL CANNULA AT O2 2L/MIN; O2 SAT 100% WITH RR BETWEEN 18 AND 22. CONTINUE TO MONITOR.
--- NOTE | 2017-01-07 18:52 | NUR ---
THE PAIENT HAS BEEN SLEEPING SINCE EXTUBATED. O2 SAT >95 % ON O2 2L/MIN VIA NASAL CANNULA. CONTACT AND DROPLET ISOLATION MAINTAINED THROUGHOUT THE SHIFT. PATIENT WAS REPOSITIONED Q2HR THROUGHOUT THE SHIFT.
--- NOTE | 2017-01-07 19:05 | NUR ---
RECEIVED REPORT FROM DAY SHIFT RN. ALL QUESTIONS AND CONCERNS ANSWERED. WILL ASSUME ALL CARE.
--- NOTE | 2017-01-07 19:50 | NUR ---
PT IS NON-VERBAL, CANNOT FOLLOW COMMANDS, UNABLE TO MAKE NEEDS KNOWN. PUPILS 2/SLUGGISH. PT IS ABLE TO OPEN EYES SPONTANEOUSLY AND TO VERBAL AND TACTILE STIMULI. PT HAS NASAL CANUALA IN PLACE INFUSING 2L OF O2. PT LUNGS SOUNDS ARE CLEAR TO BILAT UPPER LOBES AND DIMINISHED TO BILAT BASES OF LOBES HEARD UPON AUSCULTATION. BREATHING IS LABORED. CHEST RISE IS EQUAL AND SYMMETRICAL. S1 AND S2 HEART SOUNDS PRESENT, NO S/S OF CHEST PAIN NOTED. ABD IS FLAT AND SOFT/ HYPOACTIVE BOWEL SOUNDS X4 QUADRANTS. FLEXI-SEAL IN PLACE AND PATENT, DARK BROWN/GREEN MATTER NOTED TO TUBING. GARDNER CATHETER IN PLACE, CLEAN AND PATENT, DRAINING DASIA URINE. +3 PITTING EDEMA NOTED TO BUE AND +2 PITTING EDEMA TO BLE. PULSES ARE WEAK TO BUE AND BLE. WOUNDS: COCCYX- PSEDUOMONAS AERUGINOSA, L HEEL- E.COLI/PSEUDOMONAS, R ELBOW- MRSA, GROIN- PSEDUOMONAS. ALL WOUND DRESSINGS ARE CDI. HOB AT 30 DEGREES, ORAL CARE PROVIDED. BP 132/81, MAP 67, HR 109, RR 15, TEMP 98.9, O2 100%, NO S/S OF PAIN OR DISTRESS NOTED AT THIS TIME. WILL CONTINUE TO MONITOR FOR ANY ACUTE CHANGES.
--- NOTE | 2017-01-07 20:25 | NUR ---
PT SEEN BY DAUGHTER AREN,UPDATED ON PTS STATUS .DR AVALOS MADE AWARE PT DOES NOT HAVE OGT FOR MEDICATIONS.
--- NOTE | 2017-01-07 20:58 | NUR ---
INQUIRED BY PHONE UPDATED ON PTS STATUS,WILL NOTIFY FOR ANY CHANGE IN STATUS.
--- NOTE | 2017-01-07 22:25 | NUR ---
PTS DAUGHTER AREN ASKING TO TALK TO FOR PLAN IN AM.MESSAGE LEFT TO .
--- NOTE | 2017-01-07 22:50 | NUR ---
CALLED BACK AND WILL BE HERE AT 0830 IN AM,AREN NOTIFIED.
--- NOTE | 2017-01-08 04:00 | NUR ---
BED BATH PERFORMED, LINENS CHANGED, ORAL CARE PROVIDED. 2L 02 VIA NC. O2 SAT 100%. BP 142/89, MAP 106, HR 105, RR 12, NO S/S OF PAIN OR DISTRESS NOTED. WILL CONTINUE TO MONITOR FOR ANY ACUTE CHANGES.
[2017-01-08 05:08] LABS: BASOPHIL % 0.1 % (0-2); PLATELET COUNT 230 x10^3mcL (130-400)
[2017-01-08 05:10] LABS: CALCIUM 7.7 mg/dL (8.5-10.1); CARBON DIOXIDE 24.5 mmol/L (21-32); CHLORIDE SERUM 107 mmol/L (98-107); CREATININE SERUM 0.3 mg/dL (0.6-1.0); GLUCOSE SERUM 84 mg/dL (74-106); MAGNESIUM 1.8 mg/dL (1.8-2.4); PHOSPHOROUS 3.7 mg/dL (2.5-4.9); POTASSIUM SERUM 3.7 mmol/L (3.5-5.1); SODIUM SERUM 138 mmol/L (136-145)
[2017-01-08 05:12] LABS: RED CELL DISTRIBUTION WIDTH 16.9 % (11.5-14.5)
--- NOTE | 2017-01-08 06:03 | NUR ---
AM FULL BATH WITH LINEN CHANGE DONE.ORAL AND GARDNER CARE DONE.PT SEEN BY UPDATED ON PTS STATUS.
[2017-01-08 07:15] VITALS: BP 148/92
--- NOTE | 2017-01-08 07:18 | NUR ---
REPORT RECEIVED FROM TAM BENJAMIN.
[2017-01-08] MEDS ORDERED: GOOD SENSE ASP325 MG PO (09:16)
[2017-01-08] MEDS ORDERED: ZOF4 PO (09:17)
--- NOTE | 2017-01-08 09:18 | NUR ---
PT IS RESTING IN BED OBTUNDED. PT OPENS EYES SPONT, DOES NOT TRACK. PT RESPONDS TO TACTILE STIMULI, NO PURPOSEFUL MOVEMENT NOTED. PT IS BREATHING EVEN AND UNLABORED ON 2L NC. LUNG SOUNDS ARE CLEAR TO BUL, DIMINISHED TO BASES. SINUS TACH W/ OCCASIONAL PACS, HR = 109. S1 S2 HEART SOUNDS AUSCULTATED. PULSES ARE WEAK X4. CAP REFILL > 3 S. SKIN IS WARM AND PALE. +2 EDEMA NOTED TO BUE AND BLE. BUE ARE WEEPING. R IJ CVC INTACT, PORTS PATENT, DRESSING CDI, INFUSING NS W/ 20 MEQ KCL @ 70 CC/HR. ABD IS SOFT AND ROUNDED, BOWEL SOUNDS HYPOACTIVE X4Q. FLEXISEAL INTACT, DRAINING WELL, DARK BROWN/GREEN WATERY STOOL. GARDNER INTACT AND DRAINING VIA GRAVITY. URINE IS YELLOW W/ SEDIMENT. NO S/SX OF PAIN AT THIS TIME. HOB ELEVATED, BED LOW, SIDE RAILS UP X3, CALL LIGHT IN REACH. WILL CONTINUE TO MONITOR.
[2017-01-08] MEDS ORDERED: ROXD PO (09:19)
[2017-01-08 09:21] VITALS: BP 136/77
[2017-01-08] MEDS ORDERED: PROCHLORPERAZIN10 MG PO (09:30)
[2017-01-08] MEDS ORDERED: ANASPAZ0.125 MG PO (09:30)
[2017-01-08] MEDS ORDERED: COLACE100 MG PO (09:30)
[2017-01-08] MEDS ORDERED: FEVERALL ADULT650 MG RC (09:30)
[2017-01-08] MEDS ORDERED: WOMEN'S LAXATIVE5 MG PO (09:30)
[2017-01-08] MEDS ORDERED: [UNRECOGNIZED DRUG - OTHER] PO (09:30)
[2017-01-08] MEDS ORDERED: LORAZEPAM0.5 MG PO (09:30)
[2017-01-08] MEDS ORDERED: LEVAQUIN500 M1 PO (09:31)
--- NOTE | 2017-01-08 09:34 | NUR ---
DR PRICE AT BEDSIDE TO ASSESS PT. UPDATED ON PT STATUS, QUESTIONS ANSWERS. PT WILL BE BEING DISCHARGED HOME ON HOSPICE.
--- NOTE | 2017-01-08 09:55 | NUR ---
RECEIVED CALL FROM PT'S DAUGHTER, DERIC, EXPRESSING DESIRE TO SPEAK WITH DR PRICE ABOUT POC. STATES SHE HAS LOTS OF QUESTIONS. TOLD HER I WOULD GET IN CONTACT WITH DR PRICE AND INFORM HER OF THE CONCERNS.
--- NOTE | 2017-01-08 10:00 | NUR ---
DR PRICE PAGED. TRANSPORT TEAM HERE TO TRANSFER PT HOME FOR HOSPICE. INFORMED THEM OF POSSIBLE CHANGE OF PLAN. AWAITING UPDATE FROM UZMA OR DR PRICE.
[2017-01-08 10:15] VITALS: Ht 149.9 cm; Wt 134.6 kg
--- NOTE | 2017-01-08 10:20 | NUR ---
SPOKE WITH UZMA AND FAMILY DECIDED TO CANCEL DISCHARGE FOR PATIENT TO GO HOME ON HOSPICE. TRANSPORTATION RELEASED AT THIS TIME. WILL NOTIFY ODETTE, CASE MANAGEMENT AND WILL ARRANGE FOR SNF PLACEMENT PER DR. PRICE.
--- NOTE | 2017-01-08 10:25 | NUR ---
POC CHANGED, PT TO BE TRANSFERED TO A [facility] ONCE PLACEMENT IS OBTAINED. ODETTE FROM CM TO BE INFORMED.
--- NOTE | 2017-01-08 10:55 | NUR ---
RECEIVED CALL FROM PT'S , NELSON, ABOUT THE FAMILY'S REASONS FOR REFUSING PT TRANSFER HOME. CLAIMED THAT THEY WERE UNDER THE IMPRESSION THAT DURING THE MEETING WITH DR PRICE YESTERDAY THAT THE PT WOULD BE SEEN BY THE HOSPICE NURSE MULTIPLE TIMES A WEEK, BUT WHEN THE HOSPICE NURSE CAME IN YESTERDAY THE FAMILY WAS TOLD IT WOULD ONE VISIT A WEEK. ALSO STATED CONCERN FOR FEEDING OF PT IF SHE WOULD BE TRANSFERED HOME. INFORMED HIM THAT PLACEMENT IN A SNF WAS BEING LOOKED FOR AT THIS TIME.
[2017-01-08 11:00] VITALS: BP 131/76
--- NOTE | 2017-01-08 11:03 | NUR ---
DR LARRY INFORMED OF FAMILY'S DECISION AND REASONS FOR REFUSING TRANSFER OF PT BACK HOME ON HOSPICE.
--- NOTE | 2017-01-08 16:10 | NUR ---
RECEIVED PT VIA BED TRANSFERRED FROM ICU TO [facility]. PT MADE COMFORTABLE. NO DISTRESS. POSITION TO RIGHT SIDE WITH PILLOW SUPPORT. LFA WEEPING YELLOW CLEAR FLUID. PAD CHANGED UNDER ARM. RIGHT ARM DRY BUT SWOLLEN. IV PATENT RIJ WITH IVF NORMAL SALINE WITH 20 MEQ KCL INFUSING AT 70CC/HR. ABD SOFT, RECTAL TUBE IN PLACE. GARDNER CATH IN PLACE DRAINS YELLOW URINE. MULTIPLE DRESSINGS TO SKIN ULCERS IN PLACE. DAILY AND PRN CHANGE. WERE CHANGED TODAY PER ICU NURSE. SCD IN PLACE WITH SPACE BOOTS BILATERAL FOR PRESSURE RELIEF. ON AIR MATTRESS. SIDE RAILS UP X2. CALL LIGHT IN REACH.
--- NOTE | 2017-01-08 16:15 | NUR ---
PT REMAINS IN CONTACT ISOLATION. PT IS DNR.
--- NOTE | 2017-01-08 16:30 | NUR ---
REPORT GIVEN TO PATRICIA BENJAMIN. ALL CARE ENDORSED, QUESTIONS ANSWERED.
--- NOTE | 2017-01-08 17:00 | NUR ---
PT IS AWAKE, ALERT. PT IS NON VERBAL. PT OPENS EYES SPONT AND TRACKS. PT RESPONDS TO VOICE AND TACTILE STIMULI. PERRLA, 2MM BRISK. PT IS BREATHING EVEN AND UNLABORED ON RA. R IJ CVC INTACT, PORTS PATENT, DRESSING CDI. GARDNER INTACT AND DRAINING VIA GRAVTIY. FLEXISEAL INTACT. NO DISTRESS NOTED. NO S/SX OF PAIN NOTED.
--- NOTE | 2017-01-08 17:02 | NUR ---
PT TRANSFERED TO [facility] BED BY MYSELF AND RONNA BENJAMIN, PT RECEIVED BY SUZE BENJAMIN.
--- NOTE | 2017-01-08 18:29 | NUR ---
TAT HERE TO SEE PT. ON [facility]. CASE MANAGEMENT COORDINATING TRANSFER WHEN BED FOUND AT SNF. NORMA BENJAMIN ICU CALLED AND STATED HE INFORMED FAMILY OF TRANSFER NOW TO [facility]. WILL CONTINUE TO MONITOR.
--- NOTE | 2017-01-08 19:25 | NUR ---
RECEIVED BEDSIDE REPORT, SEEN PATIENT AWAKE, RESTING WITH EYES CLOSE. RESPONDS TO NAME CALL. NON VERBAL. GENBODY WEAKNESS. BREATHING EASY ON ROOM AIR. ST AT 114 WITH PAC. NO S/S OF ACUTE DISTRESS NOTED. HOB ELEVATED AT 30DEG. KEPT NPO. DNR STATUS. ON [facility]. MULTIPLE ULCERS, PLEASE SEE PHOTO FROM CHART. GARDNER CATH DRAINING TO GRAVITY. RECTAL TUBE INPLACE. ON AIR MATTRESS. SCD TO BLE. REPOSITION Q 2HRS CONTINUED. IVF NS+20KCL INFUSING WELL TO RIJ TLC. CONTACT ISOLATION MAINTAINED.
[2017-01-08 20:06] VITALS: BP 112/65
--- NOTE | 2017-01-09 05:56 | NUR ---
NO SIGNIFICANT CHANGE THROUGHOUT SHIFT. KEPT NPO. REPOSITIONED Q 2HRS PROVIDED. IVF NS+20KCL AT 70ML/HR INFUSING WELL. GARDNER CATH DRAINING OUT YELLOW URINE. RECTAL TUBE INPLACE.
[2017-01-09 06:02] VITALS: BP 174/70
--- NOTE | 2017-01-09 08:31 | NUR ---
PT OPENS EYES TO VERBAL STIMULUS, NO OTHER TYPE OF RESPONSE, UNABLE TO TO MAKE NEEDS KNOWN, NO APPARANT PAIN, TELE #9, PULSES WEAK BILATERALLY, EDEMA 3+ BUE, SCDS PRESENT, PT TOLERATING ROOM AIR, FLEXISEAL PRESENT, GARDNER CATH PRESENT WITH CLEAR, YELLOW URINE, BED BOUND, AIR MATTRESS PRESENT WITH SPACE BOOTS, MULTIPLE ULCERS ON BACK AND SACRUM, DRESSING CDI, CENTRAL LINE IN RIJ WITH KCL @ 20 ML/HR.
--- NOTE | 2017-01-09 09:26 | NUR ---
PER BOOKBINDER CHIEF, O2 SAT 86% ON RA. WILL PLACE ON O2.
--- NOTE | 2017-01-09 09:39 | NUR ---
O2 SAT 91% ON 2L VIA NC. RECTAL TUBE LEAKING. CLEANED AND REPOSITIONED. NEW WOUNDS NOTED ON BUE. BUE EDEMATOUS AND OOZING FLUID. TEGADERM PLACED TO SKIN TEAR ON LFA AND BETHANY.
[2017-01-09 09:50] VITALS: BP 137/62
--- NOTE | 2017-01-09 10:57 | NUR ---
PT RESTING IN BED, OPENS EYES TO VERBAL STIMULI, NO APPARANT PAIN, 3 PORTS OF CENTRAL LINE RIJ FLUSHED AND PATENT, SHIRLEY WASH WITH CHG WIPES PERFORMED, GARDNER CARE PERFORMED.
--- NOTE | 2017-01-09 12:17 | NUR ---
SPOT CHECK OF BLOOD SUGAR, 49, RECHECK 49. OOZING YELLOW FLUID FROM BUE.
--- NOTE | 2017-01-09 12:18 | NUR ---
HOSPICE NURSE ON FLOOR, MADE AWARE OF LOW BLOOD SUGAR. SHE WILL MAKE PHONE CALL AND LET NURSE KNOW WHAT SHOULD BE DONE.
--- NOTE | 2017-01-09 12:22 | NUR ---
IVF STOPPED DUE TO THIRD SPACING.
--- NOTE | 2017-01-09 12:55 | NUR ---
BEDSIDE GLUCOSE 58 AND RECHECKED TWICE: 49 AND 49. CHARGE NURSE NOTIFIED BY NURSE AND DR PRICE NOTIFIED BY HOSPICE NURSE. PER CHARGE NURSE, ORANGE JUICE GIVEN MUCOSALLY.
--- NOTE | 2017-01-09 13:15 | NUR ---
HOSPICE NURSE LEFT, DID NOT SAY IF SPOKE WITH DR PRICE AND DID NOT GIVE ADDITIONAL INSTRUCTIONS CONCERNING LOW BLOOD SUGAR. DR RO MADE AWARE. STARTED ON D10 AT 10ML. CURRENTLY BLOOD SUGAR 50. DR AWARE OF THIRD SPACING, ARMS OOZING YELLOW OUTPUT. APPROXIMATELY 200ML OF YELLOW URINE NOTED IN GARDNER.
--- NOTE | 2017-01-09 13:30 | NUR ---
DR RO MADE AWARE THAT LOW BLOOD SUGAR PROTOCOL WOULD INCLUDE LAB DRAW. OKAY NOT TO DO THIS AT THIS TIME.
--- NOTE | 2017-01-09 13:42 | NUR ---
BEDSIDE GLUCOSE 50. CHARGE NURSE AND DR RO NOTIFIED. DEXTROSE 10% @ 20 ML/HR DAYAMI.
--- NOTE | 2017-01-09 13:45 | NUR ---
SPOKE WITH DR PRICE, REVIEWED IVF, LASIX AND VS WITH DR. SINGLETON WITH LASIX BEING GIVEN.
[2017-01-09 13:53] VITALS: BP 130/64
--- NOTE | 2017-01-09 14:20 | NUR ---
DR PRICE IN TO SEE PATIENT.
--- NOTE | 2017-01-09 14:21 | NUR ---
DR PRICE ATTEMPTED TO CALL [facility], UNABLE TO LEAVE MESSAGE VOICEMAIL NOT SET UP.
--- NOTE | 2017-01-09 14:21 | NUR ---
DR PRICE CALLED [facility] AND LEFT MESSAGE FOR HER TO CALL BACK.
--- NOTE | 2017-01-09 15:30 | NUR ---
PT TURNED, RESPOSITIONED, SACRAL WOUND DRESSINGS CHANGED, LINENS CHANGED, PT DESATTED TO 84 O2 SAT%, RT NOTIFIED. PT PLACED ON 5L HUMUDIFIED OXYGEN.
[2017-01-09 16:38] VITALS: BP 104/52
--- NOTE | 2017-01-09 17:36 | NUR ---
DAUGHTER AND GRANDSON IN THE ROOM, DAUGHTER UPDATED ON PT'S CONDITION.
--- NOTE | 2017-01-09 19:25 | NUR ---
SEEN LAYING IN BED WITH EYES CLOSE. NO ACUTE DISTRESS NOTED ON O2 5L WITH HUMIDIFIER, O2SAT 96% AT THIS TIME. KEPT HOB ELEVATED AT 30DEG. PATIENT IS CURRENTLY DNR-HOSPICE. BED BOUND. MULTIPLE ULCERS TO BACK, SACRAL, RIGHT THIGN, BUE OOZING YELLOWISH DRAIN NOTED, DRSG CDI. REPOSITION Q 2HRS CONTINUED. GARDNER CATH DRAINING YELLOW URINE COLORED. FLEXISEAL TUBE INPLACE NOTED SMALL AMOUNT OF LIQUID STOOL NOTED TO BAG. ON AIR MATTRESS. SPACE BOOTS TO BLE INPLACE. IVF D10 AT 20ML/HR INFUSING WELL TO RIJ TLC, ALL LUMENS FLUSHED PATENT. CONTACT ISOLATION MAINTAINED.
[2017-01-09 21:33] VITALS: BP 155/67
[2017-01-09 21:48] VITALS: BP 155/67
--- NOTE | 2017-01-09 22:30 | NUR ---
NOTED BUE ULCERS OOZING WITH CLEAR YELLOWISH DRAINAGE, ABSORBANTS PADS CHANGED, DRSG TO INTACT. REPOSTIONED TO LEFT SIDE. HOB ELEVATED AT 30DEG. NO ACUTE DISTRESS NOTED.
--- NOTE | 2017-01-10 06:08 | NUR ---
NO ACUTE DISTRESS THROUGHOUT SHIFT. VSS. O2SAT 96% ON O2 2LPM N/C. REPOSITIONED Q 2HRS. KEPT NPO. DRSG TO BUE, SACRAL INTACT. GARDNER CATH DRAINING OUT 150ML OUTPUT. IVF D10% AT 20ML/HR INFUSING WELL, ALL TLC FLUSHED PATENT.
[2017-01-10 06:18] VITALS: BP 129/75
--- NOTE | 2017-01-10 08:07 | NUR ---
PT OPENS EYES TO VERBAL STIMULI, NO VERBAL RESPONSE, UNABLE TO MAKE NEEDS KNOWN, IN NO APPARANT PAIN, QUADRAPLEGIC, TELE #9, PULSES WEAK BILATERALLY, EDEMA 3+ BUE AND THIGHS, SCDS PRESENT, DIMINISHED LUNG SOUNDS, 2 L HUMIDIFIED OXYGEN, BOWEL SOUNDS HYPOACTIVE, FLEXISEAL PRESENT, GARDNER CATH WITH CLEAR, YELLOW URINE, AIR MATTRESS PRESENT, SPACE BOOTS PRESENT, STAGE4 ULCER ON COCCYX, STAGE 2 ULCER ON BACK, MULTIPLE ULCERS BILATERALLY UE, DRESSINGS CDI, CENTRAL LINE IN RIJ WITH D10 @20 ML/HR, SITE WNL.
[2017-01-10 09:23] VITALS: BP 134/56
--- NOTE | 2017-01-10 09:45 | NUR ---
PT RESTING IN BED, NO RESPIRATORY DISTRESS NOTED, OPENS EYES TO VERBAL STIMULI, IN NO APPARANT PAIN. COLOR WORKER IN THE ROOM TO REPOSITION PT.
--- NOTE | 2017-01-10 09:54 | NUR ---
[employer]ICE AND NURSE REPOSTIONED PT AND CHANGED BED LINENS.
--- NOTE | 2017-01-10 10:10 | NUR ---
CHANGED GOWN AND LINENS. REPOSITIONED WITH PILLOWS. ATTEMPTED TO SUCTION SECRETIONS. SCANT AMT REMOVED. SACRAL DRESSING CDI. PT CONTINUES TO HAVE WEEPING SKIN. ABSORBANT PADS PLACED UNDER SEEPING AREAS.PT CAME TO SEE PT IN TIME FOR ROUNDS. NELSON [phone]. HOB SLIGHTLY ELEVATED.
--- NOTE | 2017-01-10 12:38 | NUR ---
PT RESTING IN BED, DESATTED TO 80'S, NC O2 INCREASED TO 3 L, PT IN NO APPARANT PAIN. PT REPOSITIONED.
--- NOTE | 2017-01-10 13:23 | NUR ---
NURSE FROM [facility] IN TO SEE PT. DR. KELLY WAS IN A FEW MINUTES PREVIOUSLY.
[2017-01-10 13:28] VITALS: BP 122/55
--- NOTE | 2017-01-10 14:44 | NUR ---
PT RESTING IN BED, NO RESPIRATORY DISTRESS NOTED, OPENS EYES TO VERBAL STIMULI, NO APPARANT PAIN.
--- NOTE | 2017-01-10 15:01 | NUR ---
PT REPOSITIONED, GARDNER CARE PERFORMED, CHG WASH PERFORMED, GOWN CHANGED.
--- NOTE | 2017-01-10 15:07 | NUR ---
SHIRLEY WIPES, GARDNER CARE AND REPOSITIONED..
--- NOTE | 2017-01-10 15:20 | NUR ---
UZMA PINEDA TO SEE PT TODAY [phone].
[2017-01-10 16:47] VITALS: BP 102/54
--- NOTE | 2017-01-10 18:26 | NUR ---
PT RESTING IN BED, NO APPARANT PAIN.
--- NOTE | 2017-01-10 19:45 | NUR ---
PT A/O X1. PT OPENS EYES SPONTANEOUSLY TO VERBAL STIMULUS; APHASIC, QUADRAPLEGIC. ON TELE #9, NSR, NO S/S OF PAIN OR DISCOMFORT OBSERVED. PULSES PALPABLE BUT WEAK TO BLE, EDEMA 3+ NOTED TO BUE, 2+ NOTED TO BLE. SCDs IN PLACE, HEEL PROTECTORS IN PLACE. PT ON 02 3L NC WITH HUMIDIFER. DIMINISHED BREATH SOUNDS NOTED TO BLL, CONGESTION NOTED TO BUL. FLEXI-SEAL IN PLACE, PATENT WITH DARK BROWNISH MATTER. HYPOACTIVE BOWEL SOUNDS. GARDNER CATHETER PATENT AND INTACT, DRAINING YELLOW URINE WITH MINIMAL OUTPUT. PT IS TOTAL CARE, ON AIR MATTRESS, TURN Q2H. STAGE 4 ULCER NOTED TO SACRUM WITH DRESSING IN PLACE, CDI. MULTIPLE WOUNDS NOTED TO BUE AND BLE. IVF INFUSING WELL TO THE RIGHT IJ ORDERED, PATENT AND INTACT. BED IN LOWEST SETTING, SIDE RAILS UP X2, CALL LIGHT WITHIN REACH. WILL CONTINUE TO MONITOR.
--- NOTE | 2017-01-10 20:15 | NUR ---
PER DR PRICE, CHECK PT'S BS-76. NO NEW ORDERS AT THIS TIME.
[2017-01-10 21:22] VITALS: BP 141/74
--- NOTE | 2017-01-11 00:30 | NUR ---
NEW PHOTOS TAKEN, WOUND DRESSING TO COCCYX CHANGED. PATIENT REPOSITIONED. WILL CONTINUE TO MONITOR.
[2017-01-11 05:48] VITALS: BP 157/69
--- NOTE | 2017-01-11 06:02 | NUR ---
PT RESTED THROUGHOUT THE NIGHT, NO DISTRESS NOTED. NO S/S OF PAIN NOTED. SAFETY AND COMFORT MEASURES MAINTAINED. BED IN LOWEST SETTING, SIDE RAILS UP X2, CALL LIGHT WITHIN REACH. WILL ENDORSE CARE TO AM NURSE.
--- NOTE | 2017-01-11 07:55 | NUR ---
AND RESIDENTS DID ROUNDS. DISCUSSED PLAN OF CARE.
--- NOTE | 2017-01-11 08:00 | NUR ---
RECEIVED PT IN BED. ASSESSED AND DOCUMENTED. AT BEDSIDE REQUESTING TO TALK TO THE DOCTOR AND HE SAYING HE WANTS TO START FEEDING FOR PT. INFORMED . SHE SAID SHE WILL TALK WITH HIM. PT RESTING IN BED.NO MOANING OR NO SIGNS OF PAIN NOTED THIS TIME. SAFTEY PRECAUTIONS ON. WILL MONITOR.
[2017-01-11 09:43] VITALS: BP 134/58
--- NOTE | 2017-01-11 11:00 | NUR ---
TRANSPORTAION WAS ARRANGED PT TO TRANSFER TO [facility] BUT PT'S TALK TO AND HE IS CHANGED MIND TO FEED THE PT AND SPOKE WITH . TRANSPORATION ON HOLD THIS TIME.CHARGE NURSE AWARE.
--- NOTE | 2017-01-11 12:30 | NUR ---
SPOKE WITH PT'S AND HER DAUGHTER. THEY AGREED TRANSFER PT AND KEEP PT ON HOSPICE.NOW ARRANGING ANOTHER TRANSPORTATION TIME FOR TRANSFER TODAY. CHARGE NURSE AWARE.
[2017-01-11 13:58] VITALS: BP 141/66
--- NOTE | 2017-01-11 14:00 | NUR ---
CALLED AND GAVE REPORT TO NURSE FROST AT [facility]. PT WILL TRANSFER TODAY.
[2017-01-11] MEDS ORDERED: LEV500PM IV (14:30)
[2017-01-11 15:30] VITALS: BP 141/66
--- NOTE | 2017-01-11 16:20 | NUR ---
[facility] IS HERE TO ORDER FILLER PT. CALLED [facility] AND INFORMED NURSE PT IS LEAVING NOW AND ALSO REMIND THEM PT HAS CENTRAL LINE. RIJ DRESSING CHANGED TODAY. TRANSFER ACKNOWLEDGEMENT SIGNED BY TELE PHONE CONSENT FROM PT'S .PICTURES OF WOUND WAS TAKEN TODAY AM.PT TRANSFERED TO [facility] VIA GURNEY IN STABLE CONDITION.KEPT GARDNER,RECTAL TUBE AND CENTRAL LINE PER ORDER.
== END 2017-01-11 16:26 | DRG 853 ==
LOC: ED 14:54 → DU 17:07 → IC 17:07 → DU 01-08 17:06
PROVIDERS: Emergency Medicine; Family Medicine; ADMIT Family Medicine
PROC: 5A1955Z Respiratory Ventilation, Greater than 96 Consecutive Hours (ICD-10-PCS; principal; 2016-12-29)
PROC: 0BH17EZ Insertion of Endotracheal Airway into Trachea, Via Natural or Artificial Opening (ICD-10-PCS; 2016-12-29)
PROC: 02HV33Z Insertion of Infusion Device into Superior Vena Cava, Percutaneous Approach (ICD-10-PCS; 2016-12-29)
PROC: B548ZZA Ultrasonography of Superior Vena Cava, Guidance (ICD-10-PCS; 2016-12-29)
PROC: 30233N1 Transfusion of Nonautologous Red Blood Cells into Peripheral Vein, Percutaneous Approach (ICD-10-PCS; 2016-12-30)
PROC: 0JB70ZZ Excision of Back Subcutaneous Tissue and Fascia, Open Approach (ICD-10-PCS; 2016-12-31)
DX: A41.9 Sepsis, unspecified organism (principal); R65.21 Severe sepsis with septic shock; J96.01 Acute respiratory failure with hypoxia; L89.154 Pressure ulcer of sacral region, stage 4; J69.0 Pneumonitis due to inhalation of food and vomit; E43 Unspecified severe protein-calorie malnutrition; G82.50 Quadriplegia, unspecified; N17.0 Acute kidney failure with tubular necrosis; N39.0 Urinary tract infection, site not specified; E87.1 Hypo-osmolality and hyponatremia; I10 Essential (primary) hypertension; K70.30 Alcoholic cirrhosis of liver without ascites; E83.42 Hypomagnesemia; F32.9 Major depressive disorder, single episode, unspecified; E87.8 Other disorders of electrolyte and fluid balance, not elsewhere classified; E87.6 Hypokalemia; E83.39 Other disorders of phosphorus metabolism; M62.50 Muscle wasting and atrophy, not elsewhere classified, unspecified site; L89.620 Pressure ulcer of left heel, unstageable; L89.010 Pressure ulcer of right elbow, unstageable; I69.365 Other paralytic syndrome following cerebral infarction, bilateral; Z92.3 Personal history of irradiation; I69.320 Aphasia following cerebral infarction; Z85.3 Personal history of malignant neoplasm of breast; Z68.24 Body mass index [BMI] 24.0-24.9, adult
CPT/HCPCS: 36556; 36600; 83880; 84439; A4628; C9113; J0171; J1642; J1644; J1940; J1956; J2250; J2270; J2543; J2704; J3010; J3475; J3480; J3490; J7030; J7040; J7050; J8597; P9016; Q0092; Q0163